=== PATIENT | female | born 1995 | race Caucasian/White ===

== ENCOUNTER 2016-12-26 11:02 | Emergency (ER) | payer OTHER ==
[2016-12-26] MEDS ORDERED: ORPHENADRINE 30 MG/ML 2 ML VIAL IM STA (11:50)
[2016-12-26] MEDS ORDERED: KETOROLAC 60 MG/2 ML VIAL IM STA (11:50)
--- NOTE | 2016-12-26 11:53 | ED ---
Back Pain HPI - General Chief Complaint: Back Pain/Injury Stated Complaint: Back pain Time Seen by Provider: 12/26/16 11:36 Source: patient Limitations: no limitations - History of Present Illness Initial Comments: 21-year-old female patient presents emergency department today for complaints of right lower back pain with radiation down her right leg. Patient states symptoms started this morning. Patient states that she does have a history of chronic back pain, herniated disc, and did have steroid injections with nerve burning in June or July. Patient states she's been having symptoms similar to this intermittently since then. Patient denies any loss of bowel or bladder function. She denies any saddle anesthesia. She denies any fever or chills. Patient denies any hematuria, dysuria, urinary urgency or urinary frequency. Patient is unsure if she is . She has palpable procedures performed at [facility]. - Related Data Previous Rx's Medication Instructions Recorded Ibuprofen [Motrin] 600 mg PO Q8HR PRN #30 tab 12/26/16 methylPREDNISolone [Medrol Dose 4 mg PO DIRECTED #1 pack 12/26/16 Pack] Allergies Allergy/AdvReac Type Severity Reaction Status Date / Time No Known Allergies Allergy Verified 12/26/16 11:29 Review of Systems ROS Statement: Those systems with pertinent positive or pertinent negative responses have been documented in the HPI. ROS Other: All systems not noted in ROS Statement are negative. Past Medical History Past Medical History: No Reported History Additional Past Medical History / Comment(s): ABDOMINAL PAIN, migraines, blood in stool on and off, chronic back pain History of Any Multi-Drug Resistant Organisms: None Reported Past Surgical History: Cholecystectomy Past Anesthesia/Blood Transfusion Reactions: Motion Sickness Past Psychological History: Depression Additional Psychological History / Comment(s): . Smoking Status: Never smoker Past Alcohol Use History: None Reported Past Drug Use History: None Reported - Past Family History Mother Family Medical History: No Reported History Father Family Medical History: Hypertension General Exam Limitations: no limitations General appearance: alert, in no apparent distress Head exam: Present: atraumatic, normocephalic, normal inspection Eye exam: Present: normal appearance, PERRL, EOMI. Absent: scleral icterus, conjunctival injection, periorbital swelling ENT exam: Present: normal exam, mucous membranes moist Neck exam: Present: normal inspection. Absent: tenderness, meningismus, lymphadenopathy Respiratory exam: Present: normal lung sounds bilaterally. Absent: respiratory distress, wheezes, rales, rhonchi, stridor Cardiovascular Exam: Present: regular rate, normal rhythm, normal heart sounds. Absent: systolic murmur, diastolic murmur, rubs, gallop, clicks GI/Abdominal exam: Present: soft, normal bowel sounds. Absent: distended, tenderness, guarding, rebound, rigid Extremities exam: Present: normal inspection, full ROM, normal capillary refill , other (Pedal pulses intact 2+.). Absent: tenderness, pedal edema, joint swelling, calf tenderness Back exam: Present: normal inspection. Absent: CVA tenderness (R), CVA tenderness (L) Expanded Back exam: Positive Straight Leg Raise: Right Neurological exam: Present: alert, oriented X3, CN II-XII intact Psychiatric exam: Present: normal affect, normal mood Skin exam: Present: warm, dry, intact, normal color. Absent: rash Course Vital Signs 12/26/16 11:14 Temperature 98.7 F Pulse Rate 97 Respiratory 18 Rate Blood Pressure 122/78 O2 Sat by Pulse 96 Oximetry Medical Decision Making - Medical Decision Making 21-year-old female patient presented for evaluation of lower back pain with radiation down the right leg. Symptoms are consistent with sciatica. Straight leg test on the right was positive. hCG results negative, patient will be discharged home with a prescription for Motrin and Medrol Dosepak. Patient will be given IM injection here of Toradol and Norflex. Patient instructed to follow up with [facility]. Follow-up with her primary care physician one to 2 days for recheck. Return for any new, worsening, or concerning symptoms. She verbalizes understanding and agrees with this plan. - Lab Data Lab Results 12/26/16 Range/Units 11:55 Urine HCG, Qual Not Detected (Not Detectd) Disposition Clinical Impression: Sciatica Disposition: HOME SELF-CARE Condition: Stable Instructions: Chronic Back Pain (ED), Sciatica (ED) Additional Instructions: Warm moist heat to the area. Gentle stretching exercises. Take anti- inflammatory medications as directed. Complete steroid Dosepak and full. Follow-up with [facility]. Return for any new, worsening, or concerning symptoms. Prescriptions: Ibuprofen [Motrin] 600 mg PO Q8HR PRN #30 tab PRN Reason: Pain methylPREDNISolone [Medrol Dose Pack] 4 mg PO DIRECTED #1 pack Referrals: Theron Davenport MD [Primary Care Provider] - 1-2 days Time of Disposition: 12:09
[2016-12-26 12:51] VITALS: BP 121/67; PULSE 60; RESP 16; TEMP 97.9
== END 2016-12-26 12:50 | disposition home or self-care (01) ==
LOC: EC 11:02
DX: G89.29 Other chronic pain (principal); M54.31 Sciatica, right side; Z32.02 Encounter for pregnancy test, result negative
CPT/HCPCS: 96372 ×3; 99283 ×2; 81025; J2360; J1885

== ENCOUNTER 2017-04-22 15:45 | Emergency (ER) | payer OTHER ==
[2017-04-22 15:49] VITALS: BP 127/75; PULSE 88; RESP 18; TEMP 99
[2017-04-22] MEDS ORDERED: ONDANSETRON ODT 4 MG TAB PO STA (16:22)
--- NOTE | 2017-04-22 16:24 | ED ---
General Adult HPI - General Chief complaint: Nausea/Vomiting/Diarrhea Stated complaint: Abd pain Time Seen by Provider: 04/22/17 15:50 Source: patient, RN notes reviewed Mode of arrival: ambulatory Limitations: no limitations - History of Present Illness Initial comments: This is a 21-year-old female who presents emergency Department complaining that she has been vomiting since Monday patient states she has been keep down some fluid but no full. Patient states she might be but she doesn't know. Patient states she has some abdominal cramping but no specific area of pain. Patient denies any fever chills. Patient denies any diarrhea. Patient denies any chest pain difficulty breathing or shortness of breath. - Related Data Home Medications Medication Instructions Recorded Confirmed No Known Home Medications [No 04/22/17 04/22/17 Known Home Medications] Allergies Allergy/AdvReac Type Severity Reaction Status Date / Time No Known Allergies Allergy Verified 04/22/17 15:49 Review of Systems ROS Statement: Those systems with pertinent positive or pertinent negative responses have been documented in the HPI. ROS Other: All systems not noted in ROS Statement are negative. Past Medical History Past Medical History: No Reported History Additional Past Medical History / Comment(s): ABDOMINAL PAIN, migraines, chronic back pain History of Any Multi-Drug Resistant Organisms: None Reported Past Surgical History: Cholecystectomy Past Anesthesia/Blood Transfusion Reactions: Motion Sickness Past Psychological History: Depression Smoking Status: Never smoker Past Alcohol Use History: None Reported Past Drug Use History: None Reported - Past Family History Mother Family Medical History: No Reported History Father Family Medical History: Hypertension General Exam - General Exam Comments Initial Comments: GENERAL: Patient is well-developed and well-nourished. Patient is nontoxic and well- hydrated and is in no acute distress. Patient is able to laugh and joke around in the emergency department. ENT: Neck is soft and supple. No significant lymphadenopathy is noted. Oropharynx is clear. Moist mucous membranes. Neck has full range of motion without eliciting any pain. EYES: The sclera were anicteric and conjunctiva were pink and moist. Extraocular movements were intact and pupils were equal round and reactive to light. Eyelids were unremarkable. PULMONARY: Unlabored respirations. Good breath sounds bilaterally. No audible rales rhonchi or wheezing was noted. CARDIOVASCULAR: There is a regular rate and rhythm without any murmurs gallops or rubs. ABDOMEN: Patient's abdomen is completely nontender and soft and no masses were palpated. SKIN: Skin is clear with no lesions or rashes and otherwise unremarkable. NEUROLOGIC: Patient is alert and oriented x3. Cranial nerves II through XII are grossly intact. Motor and sensory are also intact. Normal speech, volume and content. Symmetrical smile. MUSCULOSKELETAL: Normal extremities with adequate strength and full range of motion. LYMPHATICS: No significant lymphadenopathy is noted PSYCHIATRIC: Normal psychiatric evaluation. Limitations: no limitations Course Vital Signs 04/22/17 15:47 Temperature 99.0 F Pulse Rate 88 Respiratory 18 Rate Blood Pressure 127/75 O2 Sat by Pulse 98 Oximetry Medical Decision Making - Medical Decision Making Patient presents to test came back positive and she wanted no further treatment was requesting to go home. She refuses Zofran. Patient did not wait for her urinalysis results. - Lab Data Lab Results 04/22/17 Range/Units 16:25 Urine HCG, Qual Detected (Not Detectd) Disposition Clinical Impression: Vomiting during Disposition: HOME SELF-CARE Condition: Good Instructions: Acute Nausea and Vomiting (ED) Additional Instructions: Patient should follow-up with her [facility] as soon as possible. Patient should start vitamins. Referrals: Theron Davenport MD [Primary Care Provider] - 1-2 days Time of Disposition: 16:39
[2017-04-22 16:40] LABS: Appearance,Urine Cloudy (Clear); Bacteria,Urine Rare /hpf; Bilirubin,Urine Negative (Negative); Glucose,Urine (UA) Negative (Negative); Ketones,Urine Negative (Negative); Leukocyte Esterase,Urine Small (Negative); Mucus,Urine Rare /hpf; Nitrite,Urine Negative (Negative); PH, Urine 7.5 (5.0-8.0); Particle Count 3640; Protein,Urine Negative (Negative); RBC,Urine <1 /hpf (0-5); Specific Gravity,Urine 1.013 (1.001-1.035); Squamous Epithelial Cell,Urine 8 /hpf (0-4); UA Billing (MACRO vs. MICRO) MICRO; Urobilinogen,Urine <2.0 mg/dL (<2.0); WBC,Urine 2 /hpf (0-5)
== END 2017-04-22 16:45 | disposition home or self-care (01) ==
LOC: EC 15:45
DX: O21.9 Vomiting of pregnancy, unspecified (principal); O99.89 Other specified diseases and conditions complicating pregnancy, childbirth and the puerperium; R10.9 Unspecified abdominal pain; Z90.49 Acquired absence of other specified parts of digestive tract; Z3A.00 Weeks of gestation of pregnancy not specified
CPT/HCPCS: 81001; 81025; 99284

== ENCOUNTER → 2017-04-25 | Outpatient (CLI) | payer OTHER ==
--- NOTE | 2017-04-25 15:04 | US ---
EXAMINATION TYPE: US OB <=14 wks transvag DATE OF EXAM: 04/25/2017 COMPARISON: NONE CLINICAL HISTORY: O00.90 ectopic . Pt states + test/ Cramping EXAM PERFORMED: Transvaginal (TV) and Transabdominal (TA) EXAM MEASUREMENTS: GESTATIONAL AGE / DATING Physician Established: Not established Dates by LMP: (4 weeks/4 days) EDC: 12/29/2017 Dates by First Scan: No prior Dates by Current Scan for: No IUP seen at this time MATERNAL ANATOMY Uterus: 7.9 x 4.4 x 6.4 Right Ovary: 3.3 x 2.8 x 2.4 cm Left Ovary: 3.9 x 2.1 x 2.0 cm Post CDS / Adnexa: wnl Presence of free fluid: No Presence of corpus luteal cyst: Right Ovary= 2.2 x 1.6 x 2.0 cm Presence of subchorionic bleed: No GESTATION / SURVEY MSD: 0.5 cm Too early to calculate Date of LMP: 03/24/2017 Beta HcG (if available): Not available Possible early gestational sac vs. fluid within endometrial canal IMPRESSION: 1. Possible intrauterine . Differential should include fluid and decidual reaction. Correlat ion with beta-hCG and follow-up examinations are recommended. 2. Right ovarian cyst.
== END | disposition home or self-care (01) ==
LOC: RADUSWWP 14:19
PROVIDERS: ATTEND Family Medicine
DX: O00.90 Unspecified ectopic pregnancy without intrauterine pregnancy (principal); O34.81 Maternal care for other abnormalities of pelvic organs, first trimester; N83.201 Unspecified ovarian cyst, right side; Z3A.01 Less than 8 weeks gestation of pregnancy
CPT/HCPCS: 76801; 76817

== ENCOUNTER → 2017-06-02 | Outpatient (CLI) | payer OTHER ==
--- NOTE | 2017-06-02 14:25 | US ---
EXAMINATION TYPE: US abdomen complete DATE OF EXAM: 06/02/2017 COMPARISON: CT abdomen pelvis April 24, 2016 CLINICAL HISTORY: Z33.1 STATE. Cramping EXAM MEASUREMENTS: Liver Length: 14.8 cm Gallbladder Wall: surgically absent CBD: 0.3 cm Spleen: 11.9 cm Right Kidney: 11.2 x 4.2 x 3.4 cm Left Kidney: 11.5 x 5.4 x 4.6 cm Results called to TISHA Poe at Dr's office Pancreas: Body wnl head and tail obscured by bowel gas Liver: wnl Gallbladder: Surgically absent Evidence for sonographic Major's sign: no CBD: wnl Spleen: wnl Right Kidney: wnl Left Kidney: wnl Upper IVC: wnl Abd Aorta: wnl The visualized liver is homogenous. The intrahepatic portion of the IVC and proximal abdominal aorta are within normal limits. Gallbladder is surgically absent. Common bile duct is unremarkable. The visualized portions of the pancreas are homogenous. The spleen is unremarkable. Kidneys are symmetr ic and free of hydronephrosis. No renal lesions are seen. IMPRESSION: No significant finding is seen to account for patient's symptoms of cramping.
--- NOTE | 2017-06-02 14:27 | US ---
EXAMINATION TYPE: US OB <= 14 wk fetus DATE OF EXAM: 06/02/2017 COMPARISON: First trimester ultrasound April 25, 2017 CLINICAL HISTORY: Z33.1 STATE. Cramping EXAM PERFORMED: Transabdominal (TA) EXAM MEASUREMENTS: GESTATIONAL AGE / DATING Physician Established: Not yet established Dates by LMP: (9 weeks/4 days) EDC: 01/01/2018 Dates by First Scan: No prior Dates by Current Scan for: (10 weeks/1 days) EDC: 12/28/2017 MATERNAL ANATOMY Uterus: 8.7 x 7.8 x 9.1 Right Ovary: 4.0 x 2.0 x 3.4 Left Ovary: 3.5 x 1.5 x 2.4 Post CDS / Adnexa: wnl Presence of free fluid: No Presence of corpus luteal cyst: Right Ovary= 2.0 x 1.7 x 1.6 cm Presence of subchorionic bleed: No GESTATION / SURVEY CRL: 3.2 cm (10 weeks/1 days) MSD: wnl Yolk Sac (normal less than 6mm): 3mm Heart Rate: 168 bpm Rhythm: Normal IUP: Viable IUP Date of LMP: 03/27/2017 Single live intrauterine gestation is now identified as gestational sac, yolk sac, and pole a re present. No free fluid is seen in pelvic cul-de-sac. Both ovaries are identified. Within right ovary there is 2.0 cm peripheral hypervascular slightly hyp oechoic lesion felt to reflect corpus luteal cyst redemonstrated. No concerning extraovarian adnexal masses are noted. Results called to Deepika GILES at 's office at time of exam IMPRESSION: Single live intrauterine gestation is confirmed, mean crown-rump length is 3.2 cm corresponding to 10 week 1 day old fetus
== END | disposition home or self-care (01) ==
LOC: RADUSWWP 13:27
PROVIDERS: ATTEND Family Medicine
DX: R25.2 Cramp and spasm (principal); Z33.1 Pregnant state, incidental
CPT/HCPCS: 76700; 76801

== ENCOUNTER 2017-08-30 10:22 | Outpatient (CLI) | payer OTHER ==
[2017-08-30 10:50] VITALS: BP 119/82; PULSE 76; RESP 18; TEMP 97.6
--- NOTE | 2017-10-09 13:55 | P.MSEPDOC ---
Presenting Problems - Arrival Data Date of Arrival on Unit: 08/30/17 Time of Arrival on Unit: 10:25 Mode of Transport: Ambulatory - Complaint OB-Reason for Admission/Chief Complaint: Other Comment: pt 22 weeks gestation arrived c/o diarrhea and emesis since 1 am pt states her son ady had diarrhea also Medical History - Information : 2 Para: 1 Term: 1 : 0 Abortions: Spontaneous or Elective: 0 Number of Living Children: 1 - Gestational Age Gestational Age by CARL (wks/days): 22 Weeks and 5 Days Review of Systems - Review of Systems Constitutional: No problems Breast: No problems ENT: No problems Cardiovascular: No problems Respiratory: No problems Gastrointestinal: No problems Genitourinary: No problems Musculoskeletal: No problems Neurological: No problems Skin: No problems Vital Signs - Temperature Temperature: 97.6 F Temperature Source: Oral - Pulse Right Brachial Pulse Rate: 76 Pulse Assessment Method: Automatic Cuff - Respirations Respiratory Rate: 18 Oxygen Delivery Method: Room Air - Blood Pressure Right Arm Blood Pressure: 119/82 Blood Pressure Mean: 94 Blood Pressure Source: Automatic Cuff Medical Screen Scoring (Pre) - Cervical Exam Dilation: Exam Deferred Effacement: Exam Deferred Membranes: Intact - Uterine Contractions Frequency: N/A Duration: N/A Intensity: N/A - Maternal Vital Signs Maternal Temperature: N/A Maternal Blood Pressure: N/A Signs of Preeclampsia: Headache = 1, Nausea/Vomiting = 1 Maternal Respirations: N/A - Pain Assessment Pain Scale Used: Numeric (1 - 10) Pain Intensity: 7 Pain Management Goal: 2 Pain Description: Pulling, Sharp Pain Frequency: Constant Pain Behavior: Vocalization Pain Aggravating Factors: Position Non-Pharmacological Interventions: Position/Reposition FLACC Face: No Expression/Smile = 0 FLACC Legs: Relaxed = 0 FLACC Activity: Lying Quietly = 0 FLACC Cry: No Cry = 0 FLACC Consolability: Content/Relaxed = 0 FLACC Pain Score: 0 - Maternal Trauma Maternal Trauma: N/A - Assessment Baseline FHR: 150 Heart Rate - NICHD Category: Category I (Normal) = 0 Position: N/A Station: N/A - Total Score Total Score (Pre): 2 - Level of Risk Level of Risk: Low (0-5) Physician Notification (Pre) - Physician Notified Physician Notified Date: 08/30/17 Physician Notification (Post) - Physician Notified Physician Notified Date: 08/30/17 Physician Notified Time: 11:10 Spoke With: dr enriquez New Order Received: Yes - Notification Comment Comment: may discharge pt to home and have pt rest Disposition - Disposition OB Disposition: Discharge to home Discharge Date: 08/30/17 Discharge Time: 11:20 I agree with the RN Medical Screening Exam: Yes Risk & Benefit of care provided described in d/c instruction: Yes Diagnosis: RELATED CONDITIONS, UNSPECIFIED, SECOND TRIMESTER
== END 2017-08-30 11:20 | disposition home or self-care (01) ==
LOC: FBPOP 10:22
PROVIDERS: ATTEND Obstetrics & Gynecology
DX: O21.9 Vomiting of pregnancy, unspecified (principal); O99.89 Other specified diseases and conditions complicating pregnancy, childbirth and the puerperium; R19.7 Diarrhea, unspecified; Z3A.22 22 weeks gestation of pregnancy
CPT/HCPCS: 99213

== ENCOUNTER 2017-10-02 13:05 | Outpatient (CLI) | payer OTHER ==
[2017-10-02 13:27] LABS: Appearance,Urine Cloudy (Clear); Bacteria,Urine Occasional /hpf; Bilirubin,Urine 1+ (Negative); Blood,Urine Negative (Negative); Color,Urine Yellow; Glucose,Urine (UA) Negative (Negative); Ketones,Urine Negative (Negative); Leukocyte Esterase,Urine Small (Negative); Mucus,Urine Moderate /hpf; Nitrite,Urine Negative (Negative); Protein,Urine 1+ (Negative); RBC,Urine 1 /hpf (0-5); Specific Gravity,Urine 1.028 (1.001-1.035); Squamous Epithelial Cell,Urine 9 /hpf (0-4); WBC,Urine 4 /hpf (0-5)
[2017-10-02 14:17] VITALS: BP 131/70; PULSE 95; RESP 16; TEMP 96.9
--- NOTE | 2017-10-09 13:41 | P.MSEPDOC ---
Presenting Problems - Arrival Data Date of Arrival on Unit: 10/02/17 Time of Arrival on Unit: 13:05 Mode of Transport: Ambulatory - Complaint OB-Reason for Admission/Chief Complaint: Pain Medical History - Information : 2 Para: 1 Term: 1 : 0 Abortions: Spontaneous or Elective: 0 Number of Living Children: 1 - Gestational Age Gestational Age by CARL (wks/days): 27 Weeks and 3 Days Review of Systems - Review of Systems Constitutional: No problems Breast: No problems ENT: No problems Cardiovascular: No problems Respiratory: No problems Gastrointestinal: No problems Genitourinary: No problems Musculoskeletal: No problems Neurological: No problems Skin: No problems Vital Signs - Temperature Temperature: 96.9 F Temperature Source: Tympanic - Pulse Right Brachial Pulse Rate: 95 Pulse Assessment Method: Automatic Cuff - Respirations Respiratory Rate: 16 Oxygen Delivery Method: Room Air - Blood Pressure Right Arm Blood Pressure: 131/70 Blood Pressure Mean: 90 Blood Pressure Source: Automatic Cuff Medical Screen Scoring (Pre) - Cervical Exam Dilation: 0 cm = 0 Membranes: Intact - Uterine Contractions Frequency: N/A Duration: N/A Intensity: N/A - Maternal Vital Signs Maternal Temperature: N/A Signs of Preeclampsia: N/A Maternal Respirations: N/A - Pain Assessment Pain Location and Character: Back Pain Scale Used: Numeric (1 - 10) Pain Intensity: 7 Pain Management Goal: 2 Pain Description: *Acute Pain Radiation Location: na Pain Frequency: Intermittent Pain Duration: 8 Pain Duration Units: Hours Pain Behavior: None Exhibited Pain Aggravating Factors: Activity Non-Pharmacological Interventions: Position/Reposition, Reduce Environmental Stimuli, Relaxation Technique - Maternal Trauma Maternal Trauma: N/A - Assessment Baseline FHR: 135 Heart Rate - NICHD Category: Category I (Normal) = 0 Position: N/A Station: N/A - Total Score Total Score (Pre): 0 - Level of Risk Level of Risk: Low (0-5) Physician Notification (Pre) - Physician Notified Physician Notified Date: 10/02/17 Physician Notified Time: 13:49 Physician/Practitioner Notifed:: Dr. Acosta Spoke With: Dr. Acosta New Order Received: No Disposition - Disposition OB Disposition: Discharge to home Discharge Date: 10/02/17 Discharge Time: 14:00 I agree with the RN Medical Screening Exam: Yes Risk & Benefit of care provided described in d/c instruction: Yes Diagnosis: FALSE LABOR BEFORE 37 COMPLETED WEEKS OF GEST, THIRD TRI
== END 2017-10-02 14:21 | disposition home or self-care (01) ==
LOC: FBPOP 13:05
PROVIDERS: ATTEND Obstetrics & Gynecology
DX: O47.03 False labor before 37 completed weeks of gestation, third trimester (principal); R52 Pain, unspecified; Z3A.37 37 weeks gestation of pregnancy
CPT/HCPCS: 81001; 87086; G0463; 99213

== ENCOUNTER 2017-12-19 18:51 | Inpatient (IN) | payer OTHER ==
[2017-12-19 20:16] LABS: Basophils % (A) 0 %; Eosinophils % (A) 0 %; HCT 35.6 % (34.0-46.0); HGB 12.5 gm/dL (11.4-16.0); Lymphocytes # (A) 1.4 k/uL (1.0-4.8); Lymphocytes % (A) 17 %; MCH 27.9 pg (25.0-35.0); MCHC 35.2 g/dL (31.0-37.0); MCV 79.2 fL (80.0-100.0); Mean Platelet Volume 7.7; Monocytes # (A) 0.4 k/uL (0-1.0); Monocytes % (A) 4 %; Neutrophils # (A) 6.7 k/uL (1.3-7.7); Neutrophils % (A) 77 %; Platelet Count 264 k/uL (150-450); Poikilocytosis Slight; RDW 14.6 % (11.5-15.5); WBC 8.6 k/uL (3.8-10.6)
[2017-12-19 20:26] LABS: ALT 17 U/L (9-52); AST 21 U/L (14-36); Blood Urea Nitrogen 10 mg/dL (7-17); LDH 485 U/L (313-618); Uric Acid 3.8 mg/dL (3.7-7.4)
[2017-12-19 20:31] LABS: Appearance,Urine Cloudy (Clear); Bilirubin,Urine Negative (Negative); Blood,Urine Negative (Negative); Color,Urine Yellow; Glucose,Urine (UA) Negative (Negative); Ketones,Urine 2+ (Negative); Leukocyte Esterase,Urine Negative (Negative); Mucus,Urine Moderate /hpf; Nitrite,Urine Negative (Negative); Protein,Urine 1+ (Negative); RBC,Urine 2 /hpf (0-5); Specific Gravity,Urine 1.029 (1.001-1.035); Squamous Epithelial Cell,Urine 10 /hpf (0-4); Urobilinogen,Urine <2.0 mg/dL (<2.0); WBC,Urine 2 /hpf (0-5)
[2017-12-19] MEDS ORDERED: CARBOPROST TROMETHAMINE 250 MCG/ML 1 ML AMP IM PRN (20:53)
[2017-12-19] MEDS ORDERED: TERBUTALINE 1 MG/ML VIAL SQ PRN (20:53)
[2017-12-19] MEDS ORDERED: OXYTOCIN 10 UNIT/ML 1 ML VIAL IM PRN (20:53)
[2017-12-19] MEDS ORDERED: LIDOCAINE 1% (PF) 10 MG/ML (30 ML SDV) SQ PRN (20:53)
[2017-12-19] MEDS ORDERED: METHYLERGONOVINE 0.2 MG/ML 1 ML AMP IM PRN (20:53)
[2017-12-19] MEDS ORDERED: ONDANSETRON 4 MG/2 ML VIAL IVP PRN (20:58)
[2017-12-19] MEDS ORDERED: ACETAMINOPHEN TAB 325 MG TAB PO PRN (20:58)
--- NOTE | 2017-12-19 21:12 | P.HPOB ---
History of Present Illness H&P Date: 12/19/17 Chief Complaint: Headache with nausea and vomiting, 38+ weeks The patient is a 22-year-old 2 para 1001 admitted at 38+ weeks as established by last menstrual period and confirmed by second trimester ultrasound. She is admitted to triage with a complaint of nausea and vomiting and additionally headache beginning around the same time this afternoon. Upon presentation, her blood pressures were noted to be moderately elevated in the range of 150-160 over 90s for the first 1-2 readings. She had a single blood pressure reading of approximately 180/100 following getting up to go to the bathroom.. At rest, blood pressures have now settled into the range of 140s over 80s to 90s. Her headache has dissipated and she is complaining of less nausea and vomiting. As result of her initial presentation, she had labs sent to evaluate for preeclampsia which were essentially negative with a normal uric acid, normal liver functions, normal hemoglobin and hematocrit and platelet count, and 1+ protein on a urine dip which was contaminated in nature. Her cervix has been documented at 3 cm dilated on multiple previous admissions to triage. Given her blood pressure lability and a history of subsequent blood pressure problems following her last delivery, she has been admitted for induction of labor for -induced hypertension and possible mild preeclampsia. She will be admitted overnight with the cyclic but blood pressures. If they continue to increase significantly she will be acutely induced. Otherwise the intention will be to begin Pitocin augmentation at 0600 and undergo artificial rupture of membranes shortly thereafter in standard fashion. Evaluation of the fetus the demonstrates very reassuring heart tones. Her has otherwise been essentially uncomplicated though there was some concern that her 20 week ultrasound for the kidneys to be riding low in the pelvis, possible pelvic kidneys. Group B strep status is negative. Obstetrical history: 2 para 1001 with 1 previous term vaginal delivery without complications though her course was complicated by elevated blood pressures for approximately 2 months. Current statistics are listed above. EDC of 12/29/2017 was established by last menstrual period and confirmed by second trimester ultrasound. Laboratory workup demonstrates a blood type of O+ with a negative antibody screen. Rubella status is immune. Remainder of the laboratory workup was within normal limits. One hour Glucola was normal and group B strep status is negative. Gynecologic history: Unremarkable with no history of any infections to include STDs. Review of Systems Review of systems is confined to history of present illness. Past Medical History Past Medical History: No Reported History Additional Past Medical History / Comment(s): ABDOMINAL PAIN, migraines, chronic back pain History of Any Multi-Drug Resistant Organisms: None Reported Past Surgical History: Cholecystectomy Past Anesthesia/Blood Transfusion Reactions: Motion Sickness Smoking Status: Never smoker - Past Family History Mother Family Medical History: No Reported History Father Family Medical History: Hypertension Medications and Allergies Home Medications Medication Instructions Recorded Confirmed Type Pedi Multivit No.25/Folic Acid 300 mcg PO DAILY 12/18/17 12/19/17 History [Flintstones Multivit Chew Tab] Allergies Allergy/AdvReac Type Severity Reaction Status Date / Time No Known Allergies Allergy Verified 12/19/17 18:53 Exam - Vital Signs Vital signs: Intake and Output 12/19/17 12/19/17 12/19/17 06:59 14:59 22:59 Other: Weight 171 kg In general, this is a well-developed, well-nourished white female in no acute distress at this time. Her heart has a regular rhythm and rate without murmur. Her lungs are clear to auscultation bilaterally in all braga. Her abdomen is gravid, nondistended, has normal active bowel sounds, is soft, nontender, and without any palpable masses aside from uterine fundus. Her extremities are without any cyanosis, clubbing or significant edema and are nontender to palpation bilaterally. Digital cervical examination demonstrates her cervix to be 3 cm dilated, 50% effaced, the vertex in presentation at -2 station. Results Result Diagrams: 12/19/17 20:00 12/19/17 20:00 Abnormal Lab Results - Last 24 Hours (Table) 12/19/17 12/19/17 Range/Units 19:40 20:00 MCV 79.2 L (80.0-100.0) fL Urine Appearance Cloudy H (Clear) Urine Protein 1+ H (Negative) Ur Squamous Epith Cells 10 H (0-4) /hpf Urine Mucus Moderate H (None) /hpf Assessment and Plan (1) induced hypertension Current Visit: Yes Status: Acute Code(s): O13.9 - GESTATIONAL HTN W/O SIGNIFICANT PROTEINURIA, UNSP TRIMESTER SNOMED Code(s): 50843837 (2) 38 weeks gestation of Current Visit: Yes Status: Acute Code(s): Z3A.38 - 38 WEEKS GESTATION OF SNOMED Code(s): 42796613 Plan: The patient will be admitted for overnight observation and close observation of blood pressures. The intention will be to begin induction of labor for -induced hypertension and possible superimposed preeclampsia tomorrow morning. She will have Pitocin started at 6 AM and undergo artificial rupture of membranes shortly thereafter. She will have close maternal and surveillance and expectant management will otherwise be practiced. Should her blood pressures or any other signs or symptoms emerge overnight induction will be started at that time. She is a good candidate for either IV or epidural analgesia, whichever she may choose. All laboratory workup regarding preeclampsia to this point has been negative. Nonetheless, her blood pressures warrant induction of labor rather than further observation as an outpatient given 38+ weeks of gestation.
[2017-12-19] MEDS: LACTATED RINGERS 1,000 ML IV SCH (23:47)
[2017-12-20 00:09] VITALS: BMI 30.2
[2017-12-20] MEDS ORDERED: OXYTOCIN 20 UNITS/1000 ML NS 1,000 ML IV SCH (06:00)
[2017-12-20] MEDS: LACTATED RINGERS 1,000 ML IV SCH (06:40)
--- NOTE | 2017-12-20 07:44 | P.HPOB ---
History of Present Illness H&P Date: 12/20/17 This is a 22-year-old white female 2 para 1001 EDC 12/29/2017 at 38-4/7 weeks' gestation. Patient presented to labor and delivery with strong regular uterine contractions, bleeding she is in early labor. Initial blood pressure elevated at 160s over 80s, 146/91 on admission. She denies headache visual changes or right upper quadrant pain. Fetus is been active throughout the . She denies fluid leakage. Past medical history is significant for depression, polycystic ovaries, rheumatoid arthritis, bulging disks in the back, and hypertension with her first delivery in 2014. Past surgical history cholecystectomy 2015. Current medications vitamins daily. ALLERGIES none known. Social history patient has never been a smoker, she denies alcohol or drug use. She is single. Family history significant for heart disease and hypertension. Obstetric history is significant for blood type O positive, rubella status immune. Hepatitis B surface antigen, HIV testing, VDRL testing, gonorrhea and chlamydia cultures, group B strep cultures all negative. One-hour Glucola 119. PIH labs all performed and within normal limits. Ultrasound suggesting kidneys are low, cannot exclude pelvic kidneys, anatomic survey otherwise negative. On exam this is a pleasant young female, 5 foot 3 inches, 171 pounds, blood pressure at this time is 130/80 and vital signs are otherwise stable. The general physical exam is within normal limits, chest is clear, extremities reveal no edema. Cervix is 3-4 cm dilated, 60% effaced, -2 station, vertex presentation. Artificial amniorrhexis reveals clear fluid. heart rate is consistent with reactive NST. Impression: 38-4/7 weeks intrauterine , -induced hypertension with normal blood pressure at this time. Plan: Oxytocin per hospital protocol. Epidural may be placed per her request. Continue close maternal and surveillance. Anticipate normal spontaneous vaginal delivery. Review of Systems Constitutional: Reports as per HPI Past Medical History Past Medical History: No Reported History Additional Past Medical History / Comment(s): ABDOMINAL PAIN, migraines, chronic back pain History of Any Multi-Drug Resistant Organisms: None Reported Past Surgical History: Cholecystectomy Past Anesthesia/Blood Transfusion Reactions: Motion Sickness Past Psychological History: Depression Additional Psychological History / Comment(s): . Smoking Status: Never smoker Past Alcohol Use History: None Reported Past Drug Use History: None Reported - Past Family History Mother Family Medical History: No Reported History Father Family Medical History: Hypertension Medications and Allergies Home Medications Medication Instructions Recorded Confirmed Type Pedi Multivit No.25/Folic Acid 300 mcg PO DAILY 12/18/17 12/19/17 History [Flintstones Multivit Chew Tab] Allergies Allergy/AdvReac Type Severity Reaction Status Date / Time No Known Allergies Allergy Verified 12/19/17 18:53 Exam - Vital Signs Vital signs: Vital Signs Temp Pulse Resp BP 12/19/17 23:25 98.7 F 63 18 129/74 Intake and Output 12/19/17 12/20/17 12/20/17 22:59 06:59 14:59 Other: # Voids 1 Weight 171 kg 77.564 kg See dictation under HPI please Results Result Diagrams: 12/19/17 20:00 12/19/17 20:00 Abnormal Lab Results - Last 24 Hours (Table) 12/19/17 12/19/17 Range/Units 19:40 20:00 MCV 79.2 L (80.0-100.0) fL Urine Appearance Cloudy H (Clear) Urine Protein 1+ H (Negative) Urine Ketones 2+ H (Negative) Ur Squamous Epith Cells 10 H (0-4) /hpf Urine Mucus Moderate H (None) /hpf Assessment and Plan Plan: Oxytocin per hospital protocol. Close maternal and surveillance. Anticipate normal spontaneous vaginal delivery. Time with Patient: Less than 30
[2017-12-20] MEDS ORDERED: fentaNYL (PF) 50 MCG/ML 5 ML AMP ONE (08:54)
[2017-12-20] MEDS ORDERED: BUPIVACAINE (PF) 0.25% 30 ML VIAL ONE (08:54)
[2017-12-20] MEDS ORDERED: SODIUM CHLORIDE 0.9% 100 ML BAG ONE (08:54)
[2017-12-20] MEDS ORDERED: BUPIVACAINE (PF) 0.25% 25 ML, fentaNYL (PF) 200 MCG in SODIUM CHLORIDE 0.9% 71 ML EPIDURAL ONE (09:33)
--- NOTE | 2017-12-20 12:03 | P.PROBDLV ---
Vaginal Delivery Note - . Vaginal Delivery Note: This is a 22 -year-old female 2 para 1001 EDC 12/29/2017 at 38-4/7 weeks ' gestation. Patient presented to labor and delivery with strong regular uterine contractions. Initial blood pressures were high, decreased with observation. Her pressure on admission 146/91. is essentially unremarkable, group B strep cultures negative, rubella status immune. Please see dictated history and physical for details. Artificial amniorrhexis revealed clear fluid. Oxytocin was started and titrated per hospital protocol. She progressed well through the first stage of labor and was judged to be completely dilated at 1126 hours. The perineal body was prepped and draped in usual sterile fashion. With excellent maternal expulsive efforts the head delivered occiput anterior and restituted accordingly. There was a nuchal cord 2 that was reduced on the perineal body. The right or anterior shoulder was delivered from underneath the pubic symphysis at which time the oropharynx, nasopharynx and external nares were all bulb suctioned on the perineal body. Patient was officially delivered of a liveborn male infant at 1148 hours. Umbilical cord was doubly clamped and ligated, he was handed to waiting nurses for evaluation where scores of 8 and 9 at one and 5 minutes respectively were given. The placenta delivered spontaneously, it was inspected and noted to be intact with trivascular cord at 1150 hours. At this time the perineal body was redraped. Inspection of the cervix, vagina, perineum and periurethral areas revealed no lacerations or defects. Fundus is firm and in the midline, symmetric and 18 week size upon completion of delivery. Total estimated blood loss 300 mL's. weighs 7 lbs. 3 oz. or 3 -45 g. Patient and her family are allowed to begin the bonding experience in the LDR. They are requesting circumcision further son.
[2017-12-20] MEDS ORDERED: BENZOCAINE/MENTHOL SPRAY 1 GM/SPRAY AEROSOL TOPICAL PRN (12:04)
[2017-12-20] MEDS ORDERED: HYDROCORTISONE 2.5% RECTAL CREAM 30 GM TUBE RECTAL PRN (12:04)
[2017-12-20] MEDS ORDERED: diphenhydrAMINE 50 MG/ML 1 ML VIAL IVP PRN ×2 (12:04)
[2017-12-20] MEDS ORDERED: diphenhydrAMINE 50 MG CAP PO PRN (12:04)
[2017-12-20] MEDS ORDERED: WITCH HAZEL 1 EACH MED..PAD TOPICAL PRN (12:04)
[2017-12-20] MEDS ORDERED: diphenhydrAMINE 25 MG CAP PO PRN (12:04)
[2017-12-20] MEDS ORDERED: ZOLPIDEM 5 MG TAB PO PRN (12:04)
[2017-12-20] MEDS ORDERED: ACETAMINOPHEN TAB 325 MG TAB PO PRN (12:04)
[2017-12-20] MEDS ORDERED: SIMETHICONE 80 MG CHEWABLE PO PRN (12:04)
[2017-12-20] MEDS ORDERED: LANOLIN CREAM 5 GM TUBE TOPICAL PRN (12:04)
[2017-12-20] MEDS: IBUPROFEN 600 MG TAB PO PRN (19:34)
[2017-12-20] MEDS: SENNOSIDES-DOCUSATE SODIUM 1 EACH TAB PO SCH (19:35)
[2017-12-21] MEDS: IBUPROFEN 600 MG TAB PO PRN ×2 (02:11→18:43)
[2017-12-21] MEDS: LACTATED RINGERS 1,000 ML IV SCH ×2 (04:01→04:02)
--- NOTE | 2017-12-21 07:43 | P.DS ---
Providers Date of admission: 12/19/17 21:00 Expected date of discharge: 12/21/17 Attending physician: Heather Acosta Primary care physician: Stated None Hospital Course: This is a 22 -year-old 2 para 1001 EDC 12/29/2017 at 38-4/7 weeks' gestation. Patient presented in early spontaneous labor. was essentially unremarkable, group B strep cultures negative, blood type O+, rubella status immune. Please see my dictated history and physical for details. Patient received an epidural per her request, and oxytocin augmentation. She went on to deliver a liveborn male infant with scores of 8 and 9 at one and 5 minutes respectively. There was a nuchal cord 2 that was easily reduced, no lacerations or defects needed for repair. Infant weighed 3245 g or 7 lbs. 3 oz. Estimated blood loss recorded at 300 mL's. Please see dictated delivery note for details. This morning the patient is doing well. Although initial blood pressure on admission to labor with high, blood pressure this morning is 115/60's. She is voiding, ambulating, passing flatus without difficulty. Vital signs are stable and she is afebrile. Breast-feeding is going well. [place] has been circumcised. Patient is judged to be in very good condition for discharge home. She will follow-up with me in the office in 6 weeks. I have reminded her no intercourse, tampons or douching. She will use [id number] ibuprofen products as needed for pain. I've asked her to call with any fevers shakes or chills, foul smelling or copious lochia, with the passage of large blood clots, with any pain not alleviated by ibuprofen products, with any headache visual changes or right upper quadrant pain, or indeed with any concerns. We have briefly discussed contraceptive options and we will review this further in the office in 6 weeks. Patient Condition at Discharge: Good Plan - Discharge Summary New Discharge Prescriptions: No Action Pedi Multivit No.25/Folic Acid [Flintstones Multivit Chew Tab] 300 mcg PO DAILY Discharge Medication List Pedi Multivit No.25/Folic Acid [Flintstones Multivit Chew Tab] 300 mcg PO DAILY 12/18/17 [History] Follow up Appointment(s)/Referral(s): Heather Acosta MD [STAFF PHYSICIAN] - 6 Weeks Discharge Disposition: HOME SELF-CARE
[2017-12-21] MEDS: SENNOSIDES-DOCUSATE SODIUM 1 EACH TAB PO SCH (09:41)
[2017-12-22] MEDS: SENNOSIDES-DOCUSATE SODIUM 1 EACH TAB PO SCH ×2 (00:31→09:59)
[2017-12-22 07:43] VITALS: BP 135/87; PULSE 76; RESP 16; TEMP 97.2
[2017-12-22] MEDS: IBUPROFEN 600 MG TAB PO PRN (09:59)
== END 2017-12-22 11:45 | disposition home or self-care (01) | DRG 775 ==
LOC: FBPOP 18:51 → 4FBP 21:00
PROVIDERS: ADMIT Obstetrics & Gynecology; ATTEND Obstetrics & Gynecology
PROC: 3E033VJ Introduction of Other Hormone into Peripheral Vein, Percutaneous Approach (ICD-10-PCS; 2017-12-19)
PROC: 00HU33Z Insertion of Infusion Device into Spinal Canal, Percutaneous Approach (ICD-10-PCS; principal; 2017-12-20)
PROC: 10E0XZZ Delivery of Products of Conception, External Approach (ICD-10-PCS; principal; 2017-12-20)
PROC: 3E0R3NZ Introduction of Analgesics, Hypnotics, Sedatives into Spinal Canal, Percutaneous Approach (ICD-10-PCS; principal; 2017-12-20)
DX: O13.4 Gestational [pregnancy-induced] hypertension without significant proteinuria, complicating childbirth (principal); O99.344 Other mental disorders complicating childbirth; E28.2 Polycystic ovarian syndrome; Z37.0 Single live birth; F32.9 Major depressive disorder, single episode, unspecified; M06.9 Rheumatoid arthritis, unspecified; O99.89 Other specified diseases and conditions complicating pregnancy, childbirth and the puerperium; G43.909 Migraine, unspecified, not intractable, without status migrainosus; O69.81X0 Labor and delivery complicated by cord around neck, without compression, not applicable or unspecified; M54.9 Dorsalgia, unspecified; G89.29 Other chronic pain; Z3A.38 38 weeks gestation of pregnancy; Z90.49 Acquired absence of other specified parts of digestive tract; Z82.49 Family history of ischemic heart disease and other diseases of the circulatory system
CPT/HCPCS: 59025; 81001; 82565; 83615; 84450; 84460; 84520; 84550; 85025; 88307; 99215

== ENCOUNTER 2018-04-19 10:45 | Emergency (ER) | payer OTHER ==
[2018-04-19 10:56] VITALS: TEMP 98.7
[2018-04-19] MEDS ORDERED: SULFAMETHOX-TMP 800-160MG 1 EACH TAB PO STA (11:56)
[2018-04-19] MEDS ORDERED: DEXAMETHASONE SOD PHOSPHATE 10 MG/ML 1 ML VIAL IM STA (11:56)
[2018-04-19] MEDS ORDERED: CLINDAMYCIN 150 MG CAP PO STA (11:56)
[2018-04-19] MEDS ORDERED: Acetaminophen-Codeine 300-30mg TAB PO STA (11:56)
[2018-04-19] MEDS ORDERED: IBUPROFEN 600 MG TAB PO STA (11:56)
--- NOTE | 2018-04-19 11:59 | ED ---
General Adult HPI - General Chief complaint: Skin/Abscess/Foreign Body Stated complaint: Facial swelling post injury Time Seen by Provider: 04/19/18 11:19 Source: patient, RN notes reviewed, old records reviewed Mode of arrival: ambulatory Limitations: no limitations - History of Present Illness Initial comments: This is a 22-year-old female the ER for evaluation of abscess facial abscess pain. Patient has history of dental disease feels like she has significant dental abscess. Patient has history of dental abscess. - Related Data Previous Rx's Medication Instructions Recorded Doxycycline Monohydrate [Monodox] 100 mg PO Q12HR #20 cap 04/19/18 Naproxen [Naprosyn] 500 mg PO Q12HR PRN #30 tab 04/19/18 Sulfamethox-Tmp 800-160Mg [Bactrim 2 tab PO BID #40 tab 04/19/18 DS 800-160 mg] Allergies Allergy/AdvReac Type Severity Reaction Status Date / Time No Known Allergies Allergy Verified 04/19/18 11:22 Review of Systems ROS Statement: Those systems with pertinent positive or pertinent negative responses have been documented in the HPI. ROS Other: All systems not noted in ROS Statement are negative. Past Medical History Past Medical History: No Reported History Additional Past Medical History / Comment(s): ABDOMINAL PAIN, migraines, chronic back pain History of Any Multi-Drug Resistant Organisms: None Reported Past Surgical History: Cholecystectomy Past Anesthesia/Blood Transfusion Reactions: Motion Sickness Past Psychological History: Depression Smoking Status: Never smoker Past Alcohol Use History: Occasional Past Drug Use History: None Reported - Past Family History Mother Family Medical History: No Reported History Father Family Medical History: Hypertension General Exam - General Exam Comments Initial Comments: No abscess to drain Limitations: no limitations General appearance: alert, in no apparent distress Head exam: Present: atraumatic, normocephalic, normal inspection Eye exam: Present: normal appearance, PERRL, EOMI. Absent: scleral icterus, conjunctival injection, periorbital swelling ENT exam: Present: normal exam, mucous membranes moist Neck exam: Present: normal inspection. Absent: tenderness, meningismus, lymphadenopathy Respiratory exam: Present: normal lung sounds bilaterally. Absent: respiratory distress, wheezes, rales, rhonchi, stridor Cardiovascular Exam: Present: regular rate, normal rhythm, normal heart sounds. Absent: systolic murmur, diastolic murmur, rubs, gallop, clicks GI/Abdominal exam: Present: soft, normal bowel sounds. Absent: distended, tenderness, guarding, rebound, rigid Extremities exam: Present: normal inspection, full ROM, normal capillary refill. Absent: tenderness, pedal edema, joint swelling, calf tenderness Back exam: Present: normal inspection Neurological exam: Present: alert, oriented X3, CN II-XII intact Psychiatric exam: Present: normal affect, normal mood Skin exam: Present: warm, dry, intact, normal color. Absent: rash Course Vital Signs 04/19/18 04/19/18 10:53 12:15 Temperature 98.7 F Pulse Rate 109 H 98 Respiratory 18 16 Rate Blood Pressure 131/89 128/83 O2 Sat by Pulse 100 100 Oximetry Medical Decision Making - Medical Decision Making 22 female with dental abscess. Patient treated with antibiotics and discharged home Disposition Clinical Impression: Facial abscess, Acne Disposition: HOME SELF-CARE Condition: Fair Instructions: Abscess (ED) Prescriptions: Doxycycline Monohydrate [Monodox] 100 mg PO Q12HR #20 cap Naproxen [Naprosyn] 500 mg PO Q12HR PRN #30 tab PRN Reason: Pain Sulfamethox-Tmp 800-160Mg [Bactrim DS 800-160 mg] 2 tab PO BID #40 tab Is patient prescribed a controlled substance at d/c from ED?: No Referrals: Theron Davenport MD [Primary Care Provider] - 1-2 days Darell Kaplan MD [STAFF PHYSICIAN] - 1-2 days Jethro Kaplan MD [STAFF PHYSICIAN] - 1-2 days
[2018-04-19] MEDS ORDERED: DOXYCYCLINE MONOHYDRATE 100 MG CAPSULE PO STA (12:00)
[2018-04-19 12:15] VITALS: BP 128/83; PULSE 98; RESP 16
== END 2018-04-19 12:20 | disposition home or self-care (01) ==
LOC: EC 10:45
DX: L02.01 Cutaneous abscess of face (principal); L70.9 Acne, unspecified
CPT/HCPCS: 99284; 96372; J1100

== ENCOUNTER 2018-08-20 21:10 | Emergency (ER) | payer OTHER ==
--- NOTE | 2018-08-21 00:06 | XR ---
EXAMINATION TYPE: XR chest 2V DATE OF EXAM: 08/20/2018 COMPARISON: October 29, 2013 HISTORY: Left breast pain TECHNIQUE: Frontal and lateral views of the chest are obtained. FINDINGS: Heart and mediastinum are normal. Lungs are clear. Diaphragm is normal. Bony thorax appear s normal. IMPRESSION: Normal chest.
[2018-08-21] MEDS ORDERED: CYCLOBENZAPRINE 10MG STARTER 3 TAB BTL PO STA (00:14)
--- NOTE | 2018-08-21 00:14 | ED ---
General Adult HPI - General Chief complaint: Skin/Abscess/Foreign Body Stated complaint: Breast pain Time Seen by Provider: 08/20/18 23:09 Source: patient Mode of arrival: ambulatory Limitations: no limitations - History of Present Illness Initial comments: 22-year-old female patient presents to the emergency department today for evaluation of left sided chest pain. Patient states that she's been having the pain for the last 2 weeks. Patient states is a superficial pain she feels like it is in her breast. Patient states that she did see her primary care physician for this and did have breast ultrasound today which was normal so she presented here for further evaluation. Patient denies any injury to the chest wall. Patient states occasionally the pain does worsen when she takes a deep breath. She denies any cough or hemoptysis. Denies any shortness of breath. She denies any rash to the area but states it does occasionally itch. Patient denies any recent rash, fever, chills, abdominal pain, nausea, vomiting, diarrhea, constipation, back pain, numbness, tingling, dizziness, weakness, hematuria, dysuria, urinary urgency, urinary frequency, headache, visual changes , or any other complaints. - Related Data Home Medications Medication Instructions Recorded Confirmed Acetaminophen-Codeine 300-30mg 1 tab PO Q6H PRN 08/20/18 08/20/18 [Tylenol w/codeine #3] Ibuprofen [Motrin] 800 mg PO Q6H PRN 08/20/18 08/20/18 Naproxen Sodium [Anaprox DS] 550 mg PO Q12HR 08/20/18 08/20/18 Previous Rx's Medication Instructions Recorded Cyclobenzaprine [Flexeril] 10 mg PO TID #15 tab 08/21/18 Allergies Allergy/AdvReac Type Severity Reaction Status Date / Time No Known Allergies Allergy Verified 08/20/18 22:26 Review of Systems ROS Statement: Those systems with pertinent positive or pertinent negative responses have been documented in the HPI. ROS Other: All systems not noted in ROS Statement are negative. Past Medical History Past Medical History: No Reported History Additional Past Medical History / Comment(s): ABDOMINAL PAIN, migraines, chronic back pain History of Any Multi-Drug Resistant Organisms: MRSA Date of last positivie culture/infection: 04/23/18 MDRO Source:: MOUTH Past Surgical History: Cholecystectomy Past Anesthesia/Blood Transfusion Reactions: Motion Sickness Past Psychological History: Depression Smoking Status: Never smoker Past Alcohol Use History: Occasional Past Drug Use History: None Reported - Past Family History Mother Family Medical History: No Reported History Father Family Medical History: Hypertension General Exam Limitations: no limitations General appearance: alert, in no apparent distress, other (This is a well- developed, well-nourished adult female patient in no acute distress. Vital signs upon presentation are temperature 98.1F, pulse 62, respirations 18, blood pressure 142/92, pulse ox 100% on room air.) Eye exam: Present: normal appearance, PERRL, EOMI. Absent: scleral icterus, conjunctival injection, periorbital swelling ENT exam: Present: normal exam, normal oropharynx, mucous membranes moist Respiratory exam: Present: normal lung sounds bilaterally, chest wall tenderness (Left anterior chest wall tenderness). Absent: respiratory distress , wheezes, rales, rhonchi, stridor Cardiovascular Exam: Present: regular rate, normal rhythm, normal heart sounds. Absent: systolic murmur, diastolic murmur, rubs, gallop, clicks GI/Abdominal exam: Present: soft, normal bowel sounds. Absent: distended, tenderness, guarding, rebound, rigid Neurological exam: Present: alert, oriented X3, CN II-XII intact Psychiatric exam: Present: normal affect, normal mood Skin exam: Present: warm, dry, intact, normal color, other (Left breast is normal in color with no lesion or wounds. No masses or lumps identified. No nipple drainage.). Absent: rash Course Vital Signs 08/20/18 08/21/18 21:24 00:38 Temperature 98.1 F 98.0 F Pulse Rate 62 78 Respiratory 18 19 Rate Blood Pressure 142/92 131/79 O2 Sat by Pulse 100 99 Oximetry Medical Decision Making - Medical Decision Making 22-year-old female patient comes to the emergency department today for evaluation of left anterior chest wall pain. Physical examination does reveal tenderness to the area. No evidence of skin abnormalities. Chest x-ray showed no evidence of acute cardio pulmonary process. EKG showed normal sinus bradycardia. She did have normal ultrasound of the left breast today for Patient symptoms consistent with costochondritis. We'll treat with anti- inflammatory medication and muscle relaxers. She is instructed to follow-up with her primary care physician for recheck in 1-2 days. Return parameters discussed in detail. She verbalizes understanding and agrees with this plan. - EKG Data -: EKG Interpreted by Me EKG Comments: EKG obtained at 09 shows sinus bradycardia with a sinus arrhythmia. Ventricular rate is 54, VT interval 158, QRS duration 84, QT 420, QTC 398. No evidence of ST elevation or depression. - Radiology Data Radiology results: report reviewed, image reviewed Two-view x-ray of the chest is obtained. Heart mediastinum are normal. Lungs are clear. Diaphragm is normal. Bony thorax appears normal. Impression by Dr. Bello shows normal chest. Disposition Clinical Impression: Costochondritis Disposition: HOME SELF-CARE Condition: Good Instructions: Costochondritis (ED) Additional Instructions: Apply warm compresses to the left chest wall. Take medication as directed. Follow-up with your primary care physician for recheck this as possible. Return immediately for any new, worsening, or concerning symptoms. Prescriptions: Cyclobenzaprine [Flexeril] 10 mg PO TID #15 tab Is patient prescribed a controlled substance at d/c from ED?: No Referrals: Theron Davenport MD [Primary Care Provider] - 1-2 days Time of Disposition: 00:14
[2018-08-21 00:42] VITALS: BP 131/79; PULSE 78; RESP 19; TEMP 98
== END 2018-08-21 00:39 | disposition home or self-care (01) ==
LOC: EC 21:10
DX: M94.0 Chondrocostal junction syndrome [Tietze] (principal); G43.909 Migraine, unspecified, not intractable, without status migrainosus; Z86.14 Personal history of Methicillin resistant Staphylococcus aureus infection; Z79.1 Long term (current) use of non-steroidal anti-inflammatories (NSAID)
CPT/HCPCS: 71046; 93005; 99284

== ENCOUNTER → 2018-08-20 | Outpatient (CLI) | payer OTHER ==
--- NOTE | 2018-08-20 13:33 | USB ---
Reason for exam: clinical finding. History: Family history of breast cancer in paternal aunt. Physical Findings: Nurse Summary: Patient complains of upper outer quadrant left breast pain x 2 weeks (nurse mj). US Breast LT Left complete breast ultrasound includes all four quadrants, the retroareolar region and axilla. Finding demonstrates no cystic or solid lesion seen. No suspicious abnormality. These results were verbally communicated with the patient and result sheet given to the patient on 08/20/18. ASSESSMENT: Negative, BI-RAD 1 RECOMMENDATION: Routine screening mammogram of both breasts at age 41. (or sooner if clinically indicated)
== END ==
LOC: RADUSWWP 12:52
PROVIDERS: ATTEND Family Medicine
DX: N64.4 Mastodynia (principal)

== ENCOUNTER → 2018-09-05 | Outpatient (CLI) | payer OTHER ==
--- NOTE | 2018-09-05 09:33 | MM ---
Reason for exam: clinical finding. History: Family history of breast cancer in paternal aunt. Physical Findings: Nurse did not find any significant physical abnormalities on exam. MG Diagnostic Mammo LT w CAD CC, MLO, and spot compression CC view(s) were taken of the left breast. The breast tissue is extremely dense which could obscure a lesion on mammography. There are 5mm, 7mm and 7mm equal, oval, partially circumscribed left breast masses, two anterior inner CC view, one outer CC view, 5cm from nipple lateral and 3cm from nipple medial persistent on compression. Consensus performed, probably fibroglandular tissue with negative ultrasound. Short term follow up recommended. These results were verbally communicated with the patient and result sheet given to the patient on 09/05/18. ASSESSMENT: Probably benign, BI-RAD 3 RECOMMENDATION: Breast MRI of both breasts. Manage on a clinical basis with regard to pain. Follow-up diagnostic mammogram of the left breast in 6 months.
== END ==
LOC: RADMAMWWP 06:59
PROVIDERS: ATTEND Family Medicine
DX: Z13.89 Encounter for screening for other disorder (principal); Z80.3 Family history of malignant neoplasm of breast
CPT/HCPCS: 77065

== ENCOUNTER → 2018-09-29 | Outpatient (CLI) | payer OTHER ==
--- NOTE | 2018-10-01 10:21 | BMR ---
EXAMINATION TYPE: MR breast BILAT wo/w con DATE OF EXAM: 09/29/2018 COMPARISON: Mammogram dated 09/05/2018 and complete left breast ultrasound dated 08/20/2018 HISTORY: Abn findings. Partially circumscribed left breast masses measuring 5 mm, 7 mm and 7 mm on th e left on the mammogram of 09/05/2018 with no sonographic correlate. TECHNIQUE: A series of fat and water weighted images in the long and short axis views of both breasts are obtained in conjunction with dynamic contrast MRI with subtraction technique. The patient was i njected with 7.5 mL intravenous Gadavist gadolinium contrast. Three-dimensional and additional post processing imaging is created on independent workstation and reviewed during official interpretation of this study. FINDINGS: The breasts are composed of extreme fibroglandular tissue, limiting sensitivity of the exam ination. There is moderate symmetric background parenchymal enhancement, also limiting the sensitivit y of the examination. There is bilateral ductal prominence. No discrete T2 hyperintense masses are appreciated. Potentially corresponding to one of the mammographic masses there is a rounded area of probable fibro glandular tissue in the medial left breast at approximately the 10:00 position measuring 1.[address] series 701 image 260. No additional correlate is seen for the other partially obscured masses. Again 6 month follow-up mamm ogram is recommended for these findings. No suspicious mass nor known mass enhancement is seen within either breast. There is no suspicious ax illary adenopathy, intramammary adenopathy, or internal mammary adenopathy. IMPRESSION: BI-RADS 3-probably benign. Follow-up left breast mammogram is recommended in 6 months for the mammogr aphic abnormalities seen on the exam of 09/05/2018 with no sonographic correlate. There is no MR evid ence of malignancy on today's examination. Mammographic findings are probably benign. Additionally 3- D mammography is recommended at the time of follow-up as this may decrease call back right due to sum mation artifact/overlying dense fibroglandular tissue.
== END | disposition home or self-care (01) ==
LOC: RADMRIMAIN 11:37
PROVIDERS: ATTEND Midwife
DX: R92.8 Other abnormal and inconclusive findings on diagnostic imaging of breast (principal)
CPT/HCPCS: C8937; C8908; A9585; 77049

== ENCOUNTER 2019-02-19 10:16 | Outpatient (CLI) | payer OTHER ==
[2019-02-19 11:12] VITALS: BP 117/71; PULSE 89; RESP 16; TEMP 97.6
[2019-02-19 11:16] LABS: Appearance,Urine Clear (Clear); Bilirubin,Urine Negative (Negative); Blood,Urine Negative (Negative); Color,Urine Yellow; Glucose,Urine (UA) Negative (Negative); Ketones,Urine Negative (Negative); Leukocyte Esterase,Urine Negative (Negative); Nitrite,Urine Negative (Negative); PH, Urine 5.5 (5.0-8.0); Protein,Urine Negative (Negative); Specific Gravity,Urine 1.022 (1.001-1.035); Urobilinogen,Urine <2.0 mg/dL (<2.0)
--- NOTE | 2019-02-19 12:20 | US ---
EXAMINATION TYPE: US venous doppler duplex LE DATE OF EXAM: 02/19/2019 12:06 PM COMPARISON: US 2009 CLINICAL HISTORY: rule out DVT. Bilateral leg pain x 1 week, left leg swelling SIDE PERFORMED: Bilateral TECHNIQUE: The lower extremity deep venous system is examined utilizing real time linear array sonog lindsey with graded compression, doppler sonography and color-flow sonography. VESSELS IMAGED: External Iliac Vein (EIV) Common Femoral Vein Deep Femoral Vein Greater Saphenous Vein * Femoral Vein Popliteal Vein Small Saphenous Vein * Proximal Calf Veins (* superficial vessels) Grayscale, color doppler, spectral doppler imaging performed of the deep veins of the lower extremiti es. There is normal flow, compressibility, vascular waveforms. Right Leg: Appears negative for DVT at this time Left Leg: Appears negative for DVT at this time IMPRESSION: No sonographic evidence of deep venous thrombosis within either lower extremity.
--- NOTE | 2019-03-06 07:42 | P.MSEPDOC ---
Presenting Problems - Arrival Data Date of Arrival on Unit: 02/19/19 Time of Arrival on Unit: 10:20 Mode of Transport: Portable - Complaint OB-Reason for Admission/Chief Complaint: Headache, Pain Comment: lower abdominal cramping, headache Medical History - Information : 3 Para: 2 Number of Living Children: 2 - Gestational Age Gestational Age by CARL (wks/days): 22 Weeks and 1 Days Review of Systems - Review of Systems Constitutional: No problems Breast: No problems ENT: No problems Cardiovascular: No problems Respiratory: No problems Gastrointestinal: No problems Genitourinary: Dysuria Musculoskeletal: No problems Neurological: No problems Skin: No problems Vital Signs - Temperature Temperature: 97.6 F Temperature Source: Temporal Artery Scan - Pulse Right Sitting Brachial Pulse Rate: 89 Pulse Assessment Method: Automatic Cuff - Respirations Respiratory Rate: 16 Oxygen Delivery Method: Room Air O2 Sat by Pulse Oximetry: 98 - Blood Pressure Right Arm Sitting Blood Pressure: 117/71 Blood Pressure Mean: 86 Blood Pressure Source: Automatic Cuff Medical Screen Scoring (Pre) - Cervical Exam Dilation: Exam Deferred Effacement: Exam Deferred - Uterine Contractions Frequency: N/A Duration: N/A Intensity: N/A - Maternal Vital Signs Maternal Temperature: N/A Maternal Blood Pressure: N/A Maternal Respirations: N/A - Maternal Trauma Maternal Trauma: N/A - Assessment - Baby A Baseline FHR: 135 Position: N/A Station: N/A - Total Score - Baby A Total Score - Baby A: 0 - Level of Risk - Baby A Level of Risk - Baby A: N/A - Pain Assessment Pain Location and Character: Lower, Abdomen Pain Scale Used: Numeric (1 - 10) Pain Intensity: 3 Pain Management Goal: 0 Pain Description: Cramping Pain Radiation Location: 0 Pain Frequency: Intermittent Pain Duration: 2 Pain Duration Units: Days Pain Behavior: None Exhibited Effects of Pain: 0 Pain Aggravating Factors: None Physician Notification (Pre) - Physician Notified Physician Notified Date: 02/19/19 Physician Notified Time: 12:04 Spoke With: Dr Acosta New Order Received: Yes (discharge) - Notification Comment Comment: ua, bilateral LE venous doppler Disposition - Disposition OB Disposition: Discharge to home Discharge Date: 02/19/19 Discharge Time: 12:05 I agree with the RN Medical Screening Exam: Yes Risk & Benefit of care provided described in d/c instruction: Yes Diagnosis: FALSE LABOR, UNSPECIFIED
== END 2019-02-19 12:07 | disposition home or self-care (01) ==
LOC: FBPOP 10:16
PROVIDERS: ATTEND Obstetrics & Gynecology
DX: O47.02 False labor before 37 completed weeks of gestation, second trimester (principal); Z3A.22 22 weeks gestation of pregnancy
CPT/HCPCS: 81003; 93970; G0463; 99213

== ENCOUNTER → 2019-04-04 | Outpatient (CLI) | payer OTHER ==
[2019-04-04 18:11] LABS: Appearance,Urine Clear (Clear); Bilirubin,Urine Negative (Negative); Blood,Urine Negative (Negative); Color,Urine Yellow; Glucose,Urine (UA) Negative (Negative); Ketones,Urine 1+ (Negative); Leukocyte Esterase,Urine Negative (Negative); Nitrite,Urine Negative (Negative); Protein,Urine Negative (Negative); Specific Gravity,Urine 1.016 (1.001-1.035); Urobilinogen,Urine <2.0 mg/dL (<2.0)
[2019-04-04 20:30] VITALS: BP 120/80; PULSE 78; RESP 18; TEMP 98.5
--- NOTE | 2019-05-19 12:39 | P.MSEPDOC ---
Presenting Problems - Arrival Data Date of Arrival on Unit: 04/04/19 Time of Arrival on Unit: 16:36 Mode of Transport: Ambulatory - Complaint OB-Reason for Admission/Chief Complaint: Pain Comment: pt presents to triage from complaining of back pressure and pain that radiates. around by hips and to pelvis. states is also feeling tightening and pressure in entire. uterus. rates pain at 7 of 10 overall Medical History - Information : 3 Para: 2 Term: 2 : 0 Abortions: Spontaneous or Elective: 0 Number of Living Children: 2 - Gestational Age Gestational Age by CARL (wks/days): 28 Weeks and 3 Days Review of Systems - Review of Systems Constitutional: No problems Breast: No problems ENT: No problems Cardiovascular: No problems Respiratory: No problems Gastrointestinal: No problems Genitourinary: No problems Musculoskeletal: No problems Neurological: No problems Comment: pt has pattened healing peeling sunburn on abdomen. states is from the sun coming through the mesh of her bathing suit Vital Signs - Temperature Temperature: 98.5 F Temperature Source: Oral - Pulse Pulse Oximetery Pulse Rate: 78 Pulse Assessment Method: Automatic Cuff - Respirations Respiratory Rate: 18 Oxygen Delivery Method: Room Air - Blood Pressure Right Arm Blood Pressure: 120/80 Blood Pressure Mean: 93 Blood Pressure Source: Automatic Cuff Medical Screen Scoring (Pre) - Cervical Exam Dilation: 0 cm = 0 Membranes: Intact - Uterine Contractions Frequency: > 5 minutes apart = 1 Duration: N/A Intensity: N/A - Maternal Vital Signs Maternal Temperature: N/A Maternal Blood Pressure: N/A Signs of Preeclampsia: N/A Maternal Respirations: N/A - Maternal Trauma Maternal Trauma: N/A - Assessment - Baby A Baseline FHR: 135 Heart Rate - NICHD Category: Category I (Normal) = 0 NST: Reactive Position: N/A Station: N/A - Total Score - Baby A Total Score - Baby A: 1 - Total Score - Baby B Total Score - Baby B: 1 - Total Score - Baby C Total Score - Baby C: 1 - Level of Risk - Baby A Level of Risk - Baby A: Low (0-5) - Level of Risk - Baby B Level of Risk - Baby B: Low (0-5) - Level of Risk - Baby C Level of Risk - Baby C: Low (0-5) Physician Notification (Pre) - Physician Notified Physician Notified Date: 04/04/19 Physician Notified Time: 17:45 Physician/Practitioner Notifed:: Dr Tate New Order Received: Yes - Notification Comment Comment: Dr Tate updated with pts reason for visit, pain, contractions not able to. palpated but tracing approx every 6-8 min. orders received to get UA, Vage exam and FFN. orally hydrate and call with results. Disposition - Disposition OB Disposition: Triage Discharge Date: 04/04/19 Discharge Time: 19:50 I agree with the RN Medical Screening Exam: Yes Risk & Benefit of care provided described in d/c instruction: Yes Diagnosis: FALSE LABOR BEFORE 37 COMPLETED WEEKS OF GEST, THIRD TRI
== END | disposition home or self-care (01) ==
LOC: FBPOP 16:36
PROVIDERS: ATTEND Obstetrics & Gynecology
DX: O47.03 False labor before 37 completed weeks of gestation, third trimester (principal); Z3A.28 28 weeks gestation of pregnancy
CPT/HCPCS: 59025; 82731; 81003; G0463; 99213

== ENCOUNTER 2019-05-18 12:26 | Outpatient (CLI) | payer OTHER ==
[2019-05-18 14:17] VITALS: BP 118/75; PULSE 88; RESP 16; TEMP 97.9
[2019-05-18 14:32] LABS: Appearance,Urine Clear (Clear); Bilirubin,Urine Negative (Negative); Blood,Urine Negative (Negative); Color,Urine Yellow; Glucose,Urine (UA) Negative (Negative); Ketones,Urine Negative (Negative); Leukocyte Esterase,Urine Negative (Negative); Nitrite,Urine Negative (Negative); PH, Urine 6.5 (5.0-8.0); Protein,Urine Negative (Negative); Specific Gravity,Urine 1.019 (1.001-1.035); Urobilinogen,Urine <2.0 mg/dL (<2.0)
--- NOTE | 2019-05-19 12:48 | P.MSEPDOC ---
Presenting Problems - Arrival Data Date of Arrival on Unit: 05/18/19 Time of Arrival on Unit: 12:26 Mode of Transport: Wheelchair - Complaint OB-Reason for Admission/Chief Complaint: Possible Onset of Labor, Pain Comment: pain in lowerback around sides to front of abdomen, vaginal pressure Medical History - Information : 3 Para: 2 Term: 2 : 0 Abortions: Spontaneous or Elective: 0 Number of Living Children: 2 - Gestational Age Gestational Age by CARL (wks/days): 34 Weeks and 5 Days Review of Systems - Review of Systems Constitutional: No problems Breast: No problems ENT: No problems Cardiovascular: No problems Respiratory: No problems Gastrointestinal: No problems Genitourinary: No problems Musculoskeletal: No problems Neurological: No problems Skin: No problems Vital Signs - Temperature Temperature: 97.9 F Temperature Source: Temporal Artery Scan - Pulse Right Pulse Rate: 88 - Respirations Respiratory Rate: 16 Oxygen Delivery Method: Room Air O2 Sat by Pulse Oximetry: 97 - Blood Pressure Right Arm Blood Pressure: 118/75 Blood Pressure Mean: 89 Blood Pressure Source: Automatic Cuff Medical Screen Scoring (Pre) - Cervical Exam Dilation: 1-3 cm = 1 Membranes: Intact - Uterine Contractions Frequency: > 5 minutes apart = 1 Duration: > 40 seconds = 2 Intensity: N/A - Assessment - Baby A Baseline FHR: 125 Heart Rate - NICHD Category: Category II (Indeterminate) = 3 NST: Reactive Position: N/A Station: N/A - Total Score - Baby A Total Score - Baby A: 7 - Total Score - Baby B Total Score - Baby B: 4 - Total Score - Baby C Total Score - Baby C: 4 - Level of Risk - Baby A Level of Risk - Baby A: Medium (6-9) - Level of Risk - Baby B Level of Risk - Baby B: Low (0-5) - Level of Risk - Baby C Level of Risk - Baby C: Low (0-5) Medical Screen Scoring (Post) - Cervical Exam Dilation: 1-3 cm = 1 Membranes: Intact - Uterine Contractions Frequency: < 36 weeks = 6 Duration: > 40 seconds = 2 - Assessment - Baby A Heart Rate: 125 Heart Rate - NICHD Category: Category I (Normal) = 0 NST: Reactive - Total Score Total Score - Baby A: 9 Total Score - Baby B: 9 Total Score - Baby C: 9 - Post Treatment Level of Risk Post Treatment Level of Risk - Baby A: Medium (6-9) Post Treatment Level of Risk - Baby B: Medium (6-9) Post Treatment Level of Risk - Baby C: Medium (6-9) Physician Notification (Post) - Physician Notified Physician Notified Date: 05/18/19 Physician Notified Time: 14:50 Spoke With: Lea New Order Received: Yes (january discharge) - Notification Comment Comment: variables spontaneously resolved before discharge, pt made no cervical change, discharged with instruction to rest, hydrate, no intercourse until sees Dr. Acosta at scheduled appt WEd. Disposition - Disposition OB Disposition: Discharge to home, Written follow up instructions reviewed Discharge Date: 05/18/19 Discharge Time: 15:02 I agree with the RN Medical Screening Exam: Yes Risk & Benefit of care provided described in d/c instruction: Yes Diagnosis: FALSE LABOR BEFORE 37 COMPLETED WEEKS OF GEST, THIRD TRI
== END 2019-05-18 15:02 | disposition home or self-care (01) ==
LOC: FBPOP 12:26
PROVIDERS: ATTEND Obstetrics & Gynecology
DX: O47.03 False labor before 37 completed weeks of gestation, third trimester (principal); Z3A.34 34 weeks gestation of pregnancy
CPT/HCPCS: 59025; 81003; G0463; 99213

== ENCOUNTER 2019-05-24 15:05 | Outpatient (CLI) | payer OTHER ==
[2019-05-24] MEDS ORDERED: LACTATED RINGERS 1,000 ML IV SCH (16:00)
[2019-05-24 16:01] LABS: Appearance,Urine Clear (Clear); Bilirubin,Urine Negative (Negative); Blood,Urine Negative (Negative); Color,Urine Yellow; Glucose,Urine (UA) Negative (Negative); Ketones,Urine Negative (Negative); Leukocyte Esterase,Urine Negative (Negative); Nitrite,Urine Negative (Negative); PH, Urine 6.5 (5.0-8.0); Protein,Urine Negative (Negative); Specific Gravity,Urine 1.016 (1.001-1.035); Urobilinogen,Urine <2.0 mg/dL (<2.0)
[2019-05-24 16:11] VITALS: BP 123/72; PULSE 84; RESP 16; TEMP 97.9
--- NOTE | 2019-05-26 15:16 | P.MSEPDOC ---
Presenting Problems - Arrival Data Date of Arrival on Unit: 05/24/19 Time of Arrival on Unit: 15:05 Mode of Transport: Ambulatory - Complaint OB-Reason for Admission/Chief Complaint: Possible Onset of Labor Medical History - Information : 3 Para: 2 Term: 2 : 0 Abortions: Spontaneous or Elective: 0 Number of Living Children: 2 - Gestational Age Gestational Age by CARL (wks/days): 35 Weeks and 4 Days Review of Systems - Review of Systems Constitutional: No problems Breast: No problems ENT: No problems Cardiovascular: No problems Respiratory: No problems Gastrointestinal: No problems Genitourinary: No problems Musculoskeletal: No problems Neurological: No problems Skin: No problems Vital Signs - Temperature Temperature: 97.9 F Temperature Source: Oral - Pulse Right Brachial Pulse Rate: 84 Pulse Assessment Method: Automatic Cuff - Respirations Respiratory Rate: 16 Oxygen Delivery Method: Room Air - Blood Pressure Right Arm Blood Pressure: 123/72 Blood Pressure Mean: 89 Blood Pressure Source: Automatic Cuff Medical Screen Scoring (Pre) - Cervical Exam Dilation: 1-3 cm = 1 Membranes: Intact - Uterine Contractions Frequency: > 5 minutes apart = 1 Duration: N/A Intensity: N/A - Maternal Vital Signs Maternal Temperature: N/A Signs of Preeclampsia: N/A Maternal Respirations: N/A - Maternal Trauma Maternal Trauma: N/A - Assessment - Baby A Baseline FHR: 125 Heart Rate - NICHD Category: Category I (Normal) = 0 NST: Reactive - Total Score - Baby A Total Score - Baby A: 2 - Total Score - Baby B Total Score - Baby B: 2 - Total Score - Baby C Total Score - Baby C: 2 - Level of Risk - Baby A Level of Risk - Baby A: Low (0-5) - Level of Risk - Baby B Level of Risk - Baby B: Low (0-5) - Level of Risk - Baby C Level of Risk - Baby C: Low (0-5) Physician Notification (Pre) - Physician Notified Physician Notified Date: 05/24/19 Physician Notified Time: 15:51 Physician/Practitioner Notifed:: Carlene Spoke With: Carlene New Order Received: Yes - Notification Comment Comment: pt c/o contractions rates pain at 8 IV hydration ordered Physician Notification (Post) - Physician Notified Physician Notified Date: 05/24/19 Physician Notified Time: 16:32 Physician/Practitioner Notified:: Carlene Spoke With: Carlene New Order Received: Yes - Notification Comment Comment: pt may go home if no cervical change Disposition - Disposition Discharge Date: 05/24/19 Discharge Time: 16:49 I agree with the RN Medical Screening Exam: Yes Risk & Benefit of care provided described in d/c instruction: Yes Diagnosis: FALSE LABOR BEFORE 37 COMPLETED WEEKS OF GEST, THIRD TRI
== END 2019-05-24 16:50 | disposition home or self-care (01) ==
LOC: FBPOP 15:05
PROVIDERS: ATTEND Obstetrics & Gynecology Obstetrics
DX: O47.03 False labor before 37 completed weeks of gestation, third trimester (principal); Z3A.35 35 weeks gestation of pregnancy
CPT/HCPCS: 59025; 96360; 81003; G0463; 99213

== ENCOUNTER 2019-06-01 23:36 | Outpatient (CLI) | payer OTHER ==
[2019-06-02 01:09] VITALS: BP 118/73; PULSE 90; RESP 16; TEMP 97.9
--- NOTE | 2019-06-02 10:42 | P.MSEPDOC ---
Presenting Problems - Arrival Data Date of Arrival on Unit: 06/02/19 Time of Arrival on Unit: 23:36 Mode of Transport: Ambulatory - Complaint OB-Reason for Admission/Chief Complaint: Possible Onset of Labor Medical History - Information : 3 Para: 2 Term: 2 : 0 Abortions: Spontaneous or Elective: 0 Number of Living Children: 2 - Gestational Age Gestational Age by CARL (wks/days): 36 Weeks and 6 Days Review of Systems - Review of Systems Constitutional: No problems Breast: No problems ENT: No problems Cardiovascular: No problems Respiratory: No problems Gastrointestinal: No problems Genitourinary: No problems Musculoskeletal: No problems Neurological: No problems Skin: No problems Vital Signs - Temperature Temperature: 97.9 F Temperature Source: Oral - Pulse Right Brachial Pulse Rate: 90 Pulse Assessment Method: Automatic Cuff - Respirations Respiratory Rate: 16 O2 Sat by Pulse Oximetry: 99 - Blood Pressure Right Arm Blood Pressure: 118/73 Blood Pressure Mean: 88 Blood Pressure Source: Automatic Cuff Medical Screen Scoring (Pre) - Cervical Exam Dilation: 1-3 cm = 1 Membranes: Intact - Uterine Contractions Frequency: > 5 minutes apart = 1 Duration: N/A Intensity: N/A - Maternal Vital Signs Maternal Temperature: N/A Maternal Blood Pressure: N/A Signs of Preeclampsia: N/A Maternal Respirations: N/A - Maternal Trauma Maternal Trauma: N/A - Assessment - Baby A Baseline FHR: 120 Heart Rate - NICHD Category: Category I (Normal) = 0 NST: Reactive Position: N/A Station: N/A - Total Score - Baby A Total Score - Baby A: 2 - Total Score - Baby B Total Score - Baby B: 2 - Total Score - Baby C Total Score - Baby C: 2 - Level of Risk - Baby A Level of Risk - Baby A: Low (0-5) - Level of Risk - Baby B Level of Risk - Baby B: Low (0-5) - Level of Risk - Baby C Level of Risk - Baby C: Low (0-5) Physician Notification (Pre) - Physician Notified Physician Notified Date: 06/02/19 Physician Notified Time: 00:54 Physician/Practitioner Notifed:: Dr. Acosta Spoke With: Dr. Acosta New Order Received: Yes - Notification Comment Comment: Dr. Acosta called and given report on pt in triage. Pt c/o. VS WNL. Reactive NST. Vag exam of /-2 with no change after one hour. Orders receieved to discharge pt to home. To instruct pt to refrain from intercourse and to keep next apt. Disposition - Disposition OB Disposition: Physician follow up in office, Discharge to home Discharge Date: 06/02/19 Discharge Time: 01:04 I agree with the RN Medical Screening Exam: Yes Risk & Benefit of care provided described in d/c instruction: Yes Diagnosis: FALSE LABOR BEFORE 37 COMPLETED WEEKS OF GEST, THIRD TRI
== END 2019-06-02 01:04 | disposition home or self-care (01) ==
LOC: FBPOP 23:36
PROVIDERS: ATTEND Obstetrics & Gynecology
DX: O47.03 False labor before 37 completed weeks of gestation, third trimester (principal); Z3A.36 36 weeks gestation of pregnancy
CPT/HCPCS: 59025; G0463; 99213

== ENCOUNTER 2019-06-05 11:25 | Outpatient (CLI) | payer OTHER ==
[2019-06-05 14:22] VITALS: BP 130/88; PULSE 84; RESP 18; TEMP 98.3
--- NOTE | 2019-07-15 08:11 | P.MSEPDOC ---
Presenting Problems - Arrival Data Date of Arrival on Unit: 06/05/19 Time of Arrival on Unit: 11:30 Mode of Transport: Ambulatory - Complaint OB-Reason for Admission/Chief Complaint: Possible Onset of Labor Comment: admitted with c/o lower back and tailbone and hip pains onset last night. states she thinks she is having contractions. has been having contx off and on for last several days. last vag exam 3 cm and 70% per dr enriquez last week. Medical History - Information : 3 Para: 2 Term: 2 : 0 Abortions: Spontaneous or Elective: 0 Number of Living Children: 2 - Gestational Age Gestational Age by CARL (wks/days): 37 Weeks and 2 Days Review of Systems - Review of Systems Constitutional: No problems Breast: No problems ENT: No problems Cardiovascular: No problems Respiratory: No problems Gastrointestinal: No problems Genitourinary: No problems Musculoskeletal: No problems Neurological: No problems Skin: No problems Comment: hx of PIH with last pregnany. hx of cholysystectomy 2016. hx of migraines. pt has very flat affect. Vital Signs - Temperature Temperature: 98.3 F Temperature Source: Oral - Pulse Right Brachial Pulse Rate: 84 Pulse Assessment Method: Automatic Cuff - Respirations Respiratory Rate: 18 Oxygen Delivery Method: Room Air O2 Sat by Pulse Oximetry: 97 - Blood Pressure Right Arm Blood Pressure: 130/88 Blood Pressure Mean: 102 Blood Pressure Source: Automatic Cuff Medical Screen Scoring (Pre) - Cervical Exam Dilation: 1-3 cm = 1 Membranes: Intact - Uterine Contractions Frequency: N/A Duration: N/A Intensity: N/A - Maternal Vital Signs Maternal Temperature: N/A Maternal Blood Pressure: N/A Signs of Preeclampsia: N/A Maternal Respirations: N/A - Maternal Trauma Maternal Trauma: N/A - Assessment - Baby A Baseline FHR: 125 Heart Rate - NICHD Category: Category I (Normal) = 0 NST: Reactive Position: N/A Station: N/A - Total Score - Baby A Total Score - Baby A: 1 - Total Score - Baby B Total Score - Baby B: 1 - Total Score - Baby C Total Score - Baby C: 1 - Level of Risk - Baby A Level of Risk - Baby A: Low (0-5) - Level of Risk - Baby B Level of Risk - Baby B: Low (0-5) - Level of Risk - Baby C Level of Risk - Baby C: Low (0-5) Physician Notification (Pre) - Physician Notified Spoke With: zoe New Order Received: Yes - Notification Comment Comment: dr enriquez notified of vitals, nst, contractions, vag exam, appt sched tomorrow am. recheck cervix in one hour and recheck b/p and lmay disch home if no cerv change. Medical Screen Scoring (Post) - Cervical Exam Dilation: 1-3 cm = 1 Membranes: Intact - Uterine Contractions Frequency: > 5 minutes apart = 1 Duration: N/A Intensity: N/A - Maternal Vital Signs Maternal Temperature: N/A Maternal Blood Pressure: N/A Signs of Preeclampsia: N/A Maternal Respirations: N/A - Pain Assessment Pain Location and Character: Lower, Back, Hip, Buttock, Groin Pain Scale Used: Numeric (1 - 10) Pain Intensity: 5 Pain Description: *Acute Pain Frequency: Constant Pain Duration: 12 Pain Duration Units: Hours Pain Behavior: None Exhibited, Vocalization Pain Aggravating Factors: Contractions Non-Pharmacological Interventions: Darkened Room - Maternal Trauma Maternal Trauma: N/A - Assessment - Baby A Heart Rate: 125 Heart Rate - NICHD Category: Category I (Normal) = 0 NST: Reactive Position: N/A Station: N/A - Total Score Total Score - Baby A: 2 Total Score - Baby B: 2 Total Score - Baby C: 2 - Post Treatment Level of Risk Post Treatment Level of Risk - Baby A: Low (0-5) Post Treatment Level of Risk - Baby B: N/A Post Treatment Level of Risk - Baby C: N/A Physician Notification (Post) - Physician Notified Physician Notified Time: 12:10 Spoke With: zoe - Notification Comment Comment: discharge home Disposition - Disposition OB Disposition: Physician follow up in office, Discharge to home Discharge Date: 06/05/19 Discharge Time: 13:50 I agree with the RN Medical Screening Exam: Yes Risk & Benefit of care provided described in d/c instruction: Yes Diagnosis: FALSE LABOR AT OR AFTER 37 COMPLETED WEEKS OF GESTATION
== END 2019-06-05 13:50 | disposition home or self-care (01) ==
LOC: FBPOP 11:25
PROVIDERS: ATTEND Obstetrics & Gynecology
DX: O47.1 False labor at or after 37 completed weeks of gestation (principal); Z3A.37 37 weeks gestation of pregnancy
CPT/HCPCS: 59025; G0463; 99213

== ENCOUNTER 2019-06-13 20:56 | Outpatient (CLI) | payer OTHER ==
[2019-06-14 00:08] VITALS: PULSE 87; RESP 16; TEMP 98
[2019-06-14 00:28] VITALS: BP 133/85
--- NOTE | 2019-07-15 08:08 | P.MSEPDOC ---
Presenting Problems - Arrival Data Date of Arrival on Unit: 06/14/19 Time of Arrival on Unit: 20:56 Mode of Transport: Wheelchair - Complaint OB-Reason for Admission/Chief Complaint: Possible Onset of Labor Comment: presents to triage with contractions started around 630 pm now 3-4 min apart. had appt today with Dr Acosta today exam at office 3-4 70% and Dr Acosta strippend her membranes. Medical History - Information : 3 Para: 2 Term: 2 : 0 Abortions: Spontaneous or Elective: 0 Number of Living Children: 2 - Gestational Age Gestational Age by CARL (wks/days): 38 Weeks and 4 Days - History Comment: 2 prior vag deliveries after inductions for both with epidurals Review of Systems - Review of Systems Constitutional: No problems Breast: No problems ENT: No problems Cardiovascular: No problems Respiratory: No problems Gastrointestinal: No problems Genitourinary: No problems Musculoskeletal: No problems Neurological: No problems Skin: No problems Vital Signs - Temperature Temperature: 98.0 F Temperature Source: Oral - Pulse Right Radial Pulse Rate: 87 Pulse Assessment Method: Automatic Cuff - Respirations Respiratory Rate: 16 Oxygen Delivery Method: Room Air O2 Sat by Pulse Oximetry: 98 - Blood Pressure Right Arm Blood Pressure: 133/85 Blood Pressure Mean: 101 Medical Screen Scoring (Pre) - Cervical Exam Dilation: 4-7 cm = 2 Effacement: More than 50% = 2 Membranes: Intact - Uterine Contractions Frequency: > 5 minutes apart = 1 Duration: > 40 seconds = 2 - Maternal Vital Signs Maternal Blood Pressure: N/A Signs of Preeclampsia: N/A Maternal Respirations: N/A - Maternal Trauma Maternal Trauma: N/A - Assessment - Baby A Baseline FHR: 115 Heart Rate - NICHD Category: Category I (Normal) = 0 NST: Reactive Position: N/A Station: N/A - Total Score - Baby A Total Score - Baby A: 7 - Total Score - Baby B Total Score - Baby B: 7 - Total Score - Baby C Total Score - Baby C: 7 - Level of Risk - Baby A Level of Risk - Baby A: Medium (6-9) - Level of Risk - Baby B Level of Risk - Baby B: Medium (6-9) - Level of Risk - Baby C Level of Risk - Baby C: Medium (6-9) Physician Notification (Pre) - Physician Notified Physician Notified Date: 06/13/19 Physician Notified Time: 21:50 Physician/Practitioner Notifed:: Dr Acosta New Order Received: Yes - Notification Comment Comment: Dr Acosta updated per phone pts reason for visit is contractions. VE 4cm 70% -3. nst reactive cat 1 fht. contractions approx every 5 min. pain 8./10. plan to recheck. cervix at 2230. if change admit for labor. if unchanged pt may discharge home. repeat Cervical exam after 3 hours unchanged. cervix remains posterior. pt is comfortable with going home for early labor and will return when contractions strengthen or increase in frequeny Disposition - Disposition OB Disposition: Physician follow up in office, Discharge to home Discharge Date: 06/14/19 Discharge Time: 23:40 I agree with the RN Medical Screening Exam: Yes Risk & Benefit of care provided described in d/c instruction: Yes Diagnosis: FALSE LABOR AT OR AFTER 37 COMPLETED WEEKS OF GESTATION
== END 2019-06-13 23:40 | disposition home or self-care (01) ==
LOC: FBPOP 20:56
PROVIDERS: ATTEND Obstetrics & Gynecology
DX: O47.1 False labor at or after 37 completed weeks of gestation (principal); Z3A.38 38 weeks gestation of pregnancy
CPT/HCPCS: 59025; G0463; 99213

== ENCOUNTER 2019-06-14 23:39 | Inpatient (IN) | payer OTHER ==
[2019-06-15] MEDS ORDERED: OXYTOCIN 10 UNIT/ML 1 ML VIAL IM PRN (00:28)
[2019-06-15] MEDS ORDERED: TERBUTALINE 1 MG/ML VIAL SQ PRN (00:28)
[2019-06-15] MEDS ORDERED: LIDOCAINE 0.5% (PF) 5 MG/ML (50 ML SDV) SQ PRN (00:28)
[2019-06-15] MEDS ORDERED: CARBOPROST TROMETHAMINE 250 MCG/ML 1 ML AMP IM PRN (00:28)
[2019-06-15] MEDS ORDERED: METHYLERGONOVINE 0.2 MG/ML 1 ML AMP IM PRN (00:28)
[2019-06-15] MEDS: LACTATED RINGERS 1,000 ML IV SCH ×3 (00:30→01:18)
[2019-06-15 00:40] VITALS: BMI 33.8
[2019-06-15 00:58] LABS: Basophils # (A) 0.1 k/uL (0-0.2); Basophils % (A) 1 %; Eosinophils # (A) 0.1 k/uL (0-0.7); Eosinophils % (A) 1 %; HCT 32.7 % (34.0-46.0); HGB 11.1 gm/dL (11.4-16.0); Lymphocytes # (A) 1.8 k/uL (1.0-4.8); Lymphocytes % (A) 22 %; MCH 26.9 pg (25.0-35.0); MCHC 33.9 g/dL (31.0-37.0); MCV 79.2 fL (80.0-100.0); Mean Platelet Volume 8.1; Monocytes # (A) 0.5 k/uL (0-1.0); Monocytes % (A) 6 %; Neutrophils # (A) 5.7 k/uL (1.3-7.7); Neutrophils % (A) 69 %; Platelet Count 291 k/uL (150-450); Poikilocytosis Slight; RBC 4.13 m/uL (3.80-5.40); RDW 15.7 % (11.5-15.5); WBC 8.3 k/uL (3.8-10.6)
[2019-06-15] MEDS ORDERED: SODIUM CHLORIDE 0.9% 100 ML BAG ONE (01:05)
[2019-06-15] MEDS ORDERED: fentaNYL (PF) 50 MCG/ML 5 ML AMP ONE (01:05)
[2019-06-15] MEDS ORDERED: ROPIVACAINE 5MG/ML 20ML VIAL ONE (01:05)
[2019-06-15] MEDS ORDERED: OXYTOCIN 30 UNITS/500 ML NS 30 UNIT in SALINE 1 500ML.BAG IV SCH (04:15)
--- NOTE | 2019-06-15 06:57 | P.HPOB ---
History of Present Illness H&P Date: 06/15/19 Chief Complaint: Strong, regular uterine contractions This is a 23-year-old 3 para 2001 EDC 06/24/2019 at 38-5/7 weeks' gestation. Patient presented with strong regular uterine contractions, and was noted to be 5 cm in the triage area. Amnio sure testing was positive. The diagnosis of early labor was made and patient is admitted. She denied vaginal bleeding. Fetus is been active throughout the . Past medical history is significant for mild depression, interstitial cystitis, polycystic ovaries, rheumatoid arthritis. Past surgical history cholecystectomy 2015. Current medications vitamins. ALLERGIES: Zoloft to which she reports her throat swelling. Family history significant for hypertension and heart disease. Past obstetric history significant for normal spontaneous vaginal deliveries 2. 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 She has never been a smoker and denies alcohol or drug use. history is significant for blood type O+, rubella status immune. VDRL testing, urine culture, hepatitis B surface antigen, HIV testing, group B strep cultures all negative. One-hour Glucola 127. On exam this is a pleasant young female who is 5 foot 3 inches, 191 pounds, blood pressure on admission 135/89, vital signs stable and patient is afebrile. The general physical exam is within normal limits. Cervix on admission was 5 cm dilated, currently 9 cm dilated, -1 station, 90% effaced, vertex presentation. Artificial amniorrhexis of a large 4 bag reveals clear fluid. Patient is comfortable with epidural having been placed hours ago. heart rate is consistent with reactive NST. Impression: 38-5/7 weeks intrauterine , active spontaneous labor. All signs reassuring. A small amount of oxytocin augmentation has been started. Plan: Continue close maternal and surveillance. Anticipate normal spontaneous vaginal delivery. Review of Systems Constitutional: Reports as per HPI Past Medical History Past Medical History: No Reported History Additional Past Medical History / Comment(s): ABDOMINAL PAIN, migraines, chronic back pain History of Any Multi-Drug Resistant Organisms: MRSA Date of last positivie culture/infection: 04/23/18 MDRO Source:: face Past Surgical History: Cholecystectomy Past Anesthesia/Blood Transfusion Reactions: Motion Sickness Past Psychological History: Depression Additional Psychological History / Comment(s): . Smoking Status: Never smoker Past Alcohol Use History: Occasional Past Drug Use History: None Reported - Past Family History Mother Family Medical History: No Reported History Father Family Medical History: Hypertension Medications and Allergies Home Medications Medication Instructions Recorded Confirmed Type Acetaminophen [Tylenol] 325 mg PO Q4H 06/05/19 06/14/19 History Allergies Allergy/AdvReac Type Severity Reaction Status Date / Time sertraline [From Zoloft] Allergy Anaphylaxis Verified 06/14/19 23:51 Exam Vital Signs Temp Pulse Resp BP Pulse Ox 06/15/19 00:10 97 F L 87 18 135/89 97 Intake and Output 06/14/19 06/14/19 06/15/19 14:59 22:59 06:59 Other: Weight 86.636 kg See dictation under HPI please Results Result Diagrams: 06/15/19 00:20 Abnormal Lab Results - Last 24 Hours (Table) 06/15/19 Range/Units 00:20 Hgb 11.1 L (11.4-16.0) gm/dL Hct 32.7 L (34.0-46.0) % MCV 79.2 L (80.0-100.0) fL RDW 15.7 H (11.5-15.5) % Assessment and Plan Assessment: 38-5/7 weeks intrauterine , active spontaneous labor. All signs reassuring. Plan: Continue close maternal and surveillance. Anticipate normal spontaneous vaginal delivery. Time with Patient: Less than 30
[2019-06-15] MEDS: OXYTOCIN 20 UNITS/1000 ML NS 1,000 ML IV SCH ×2 (07:40→10:33)
[2019-06-15] MEDS ORDERED: SIMETHICONE 80 MG CHEWABLE PO PRN (07:51)
[2019-06-15] MEDS ORDERED: diphenhydrAMINE 50 MG/ML 1 ML VIAL IVP PRN ×2 (07:51)
[2019-06-15] MEDS ORDERED: diphenhydrAMINE 50 MG CAP PO PRN (07:51)
[2019-06-15] MEDS ORDERED: ZOLPIDEM 5 MG TAB PO PRN (07:51)
[2019-06-15] MEDS ORDERED: LANOLIN CREAM 5 GM TUBE TOPICAL PRN (07:51)
[2019-06-15] MEDS ORDERED: diphenhydrAMINE 25 MG CAP PO PRN (07:51)
[2019-06-15] MEDS ORDERED: WITCH HAZEL 1 EACH MED..PAD TOPICAL PRN (07:51)
[2019-06-15] MEDS ORDERED: BENZOCAINE/MENTHOL SPRAY 1 GM/SPRAY AEROSOL TOPICAL PRN (07:51)
[2019-06-15] MEDS ORDERED: HYDROCORTISONE 2.5% RECTAL CREAM 30 GM TUBE RECTAL PRN (07:51)
--- NOTE | 2019-06-15 07:51 | P.PROBDLV ---
Vaginal Delivery Note - . Vaginal Delivery Note: This is a 23-year-old white female 3 para 2001 EDC 06/24/2019 at 38-5/7 weeks' gestation. Patient presented with early labor and suspected amniorrhexis at home, clear fluid. Fetus is been active throughout the . Patient was scheduled for induction this Monday. [place] strep cultures negative, blood type O positive, please see dictated history and physical for details. Patient was admitted epidural was placed per her request. She progressed well through the first stage of labor with a small amount of oxytocin augmentation. She was judged to be completely dilated and began the second stage of labor at that time. With good maternal expulsive efforts, eventual station was noted to progress. Perineal body was prepped and draped in the usual sterile fashion. Infant's head delivered occiput posterior and restituted accordingly. There was a nuchal cord 1 that was reduced. The left or anterior shoulder was gently delivered from underneath the pubic symphysis at which time the oropharynx, nasopharynx, and external nares were all bulb suctioned on the perineal body. Patient is officially delivered of a liveborn male at 0740 hours. Umbilical cord was doubly clamped and ligated, he was handed to waiting nurses for evaluation where scores of 9 and 9 at one and 5 minutes respectively were given. Placenta delivered spontaneously, it was inspected and noted to be intact with trivascular cord at 0742 hours. At this time the perineal body was redraped. Careful Inspection of the cervix, vagina, perineum, periurethral, and perirectal areas revealed no lacerations and no defects. Fundus is firm and in the midline, symmetric and 18 week size upon completion of delivery. All sponge needle and instrument counts are correct. Patient and her are allowed to begin the bonding experience in the LDR. They are requesting circumcision further son.
[2019-06-15] MEDS: SENNOSIDES-DOCUSATE SODIUM 1 EACH TAB PO SCH ×2 (08:41→19:39)
[2019-06-15] MEDS: IBUPROFEN 600 MG TAB PO PRN ×3 (09:25→23:09)
[2019-06-15] MEDS: ACETAMINOPHEN TAB 325 MG TAB PO PRN ×2 (11:43→19:39)
[2019-06-16] MEDS: ACETAMINOPHEN TAB 325 MG TAB PO PRN ×2 (03:47→13:19)
--- NOTE | 2019-06-16 06:35 | P.PNOBGVD ---
Subjective - Subjective Principal diagnosis: day 1 Interval history: Feeling well, resting comfortably. being monitored for history of prolonged rupture of membranes Patient reports: Reports appetite normal, Reports voiding normally, Reports pain well controlled, Reports ambulating normally : doing well Objective - Latest Vital Signs Latest vital signs: Vital Signs Temp Pulse Resp BP Pulse Ox 06/16/19 00:00 98.1 F 64 14 123/65 06/15/19 20:00 98.7 F 84 16 125/76 06/15/19 16:00 98.3 F 67 20 133/82 98 06/15/19 11:50 97.8 F 76 18 146/91 98 06/15/19 09:50 97.0 F L 86 18 133/82 06/15/19 09:20 97.3 F L 81 18 143/97 06/15/19 08:50 97.2 F L 70 18 146/73 06/15/19 08:35 73 18 135/74 06/15/19 08:20 97.4 F L 67 18 131/74 06/15/19 08:05 97.1 F L 64 18 131/76 06/15/19 07:50 97.6 F 80 18 135/72 Intake and Output 06/15/19 06/15/19 06/16/19 14:59 22:59 06:59 Intake Total 57.667 Output Total 500 Balance -442.333 Intake: Intake, IV Titration 57.667 Amount Oxytocin 20 Units/1000 ml 57.667 Ns 1,000 ml @ Per Protocol IV .Q0M [facility] Rx#: [id number] Output: Emesis 250 Estimated Blood Loss 250 Other: Voiding Method Toilet # Voids 1 1 - Exam Extremities: Present: normal Abdomen: Present: normal appearance, soft Assessment and Plan (1) Normal vaginal delivery Current Visit: No Status: Acute Code(s): [id number] - SNOMED Code(s): 704524338 Plan: day #1 status post . Probable discharge home tomorrow. Routine care.
[2019-06-16] MEDS: IBUPROFEN 600 MG TAB PO PRN ×2 (08:12→16:08)
[2019-06-16] MEDS: SENNOSIDES-DOCUSATE SODIUM 1 EACH TAB PO SCH (08:12)
[2019-06-16 08:53] LABS: Basophils % (A) 1 %; Eosinophils # (A) 0.1 k/uL (0-0.7); Eosinophils % (A) 1 %; HCT 27.1 % (34.0-46.0); Hypochromasia Slight; Lymphocytes # (A) 1.7 k/uL (1.0-4.8); Lymphocytes % (A) 22 %; MCH 26.3 pg (25.0-35.0); MCHC 33.1 g/dL (31.0-37.0); MCV 79.5 fL (80.0-100.0); Mean Platelet Volume 8.3; Monocytes # (A) 0.4 k/uL (0-1.0); Monocytes % (A) 5 %; Neutrophils # (A) 5.3 k/uL (1.3-7.7); Neutrophils % (A) 69 %; Platelet Count 232 k/uL (150-450); Poikilocytosis Slight; RBC 3.41 m/uL (3.80-5.40); RDW 15.5 % (11.5-15.5); WBC 7.7 k/uL (3.8-10.6)
[2019-06-17] MEDS: IBUPROFEN 600 MG TAB PO PRN (01:16)
[2019-06-17] MEDS: SENNOSIDES-DOCUSATE SODIUM 1 EACH TAB PO SCH ×2 (02:25→07:34)
[2019-06-17] MEDS: ACETAMINOPHEN TAB 325 MG TAB PO PRN (07:33)
--- NOTE | 2019-06-17 07:50 | P.DS ---
Providers Date of admission: 06/15/19 00:09 Expected date of discharge: 06/17/19 Attending physician: Heather Acosta Primary care physician: Stated None Hospital Course: This is a 23-year-old white female 3 para 2001 EDC 06/24/2019 who presented with spontaneous amniorrhexis at 38-5/7 weeks' gestation. is remarkable for group B strep cultures negative, blood type O+, rubella status immune. Please see dictated history and physical for details. Patient was admitted, epidural was placed per her request. Oxytocin augmentation was started and titrated as appropriate. She went on to deliver vaginally a liveborn male with scores of 9 and 9 at one and 5 minutes respectively. He weighed 3670 g or 8 lbs. 1 oz. He was occiput posterior at the time of delivery. No lacerations or defects were encountered. Please see my dictated delivery note for details. This morning the patient and her are doing well. Circumcision has been performed. Patient is voiding, ambulating, passing flatus without difficulty. Vital signs are stable and she has remained afebrile. Lochia rubra is minimal to moderate. Pain is well-controlled with Motrin. Patient is judged to be in very good condition for discharge home. She will follow-up in the office with me in 6 weeks. I have reminded her no intercourse, tampons or douching. She will use [id number] Advil or Aleve, or Motrin as needed for pain. I've asked her to call me with any fevers shakes or chills, foul smelling or copious lochia, with the passage of large blood clots, with any pain not alleviated by [id number] products, or indeed with any concerns. We have briefly reviewed options for contraception and we will discuss this further in the office. Patient Condition at Discharge: Good Plan - Discharge Summary Discharge Rx Participant: No New Discharge Prescriptions: No Action Acetaminophen [Tylenol] 325 mg PO Q4H Discharge Medication List Acetaminophen [Tylenol] 325 mg PO Q4H 06/05/19 [History] Follow up Appointment(s)/Referral(s): Heather Acosta MD [STAFF PHYSICIAN] - 6 Weeks Discharge Disposition: HOME SELF-CARE
[2019-06-17 08:13] VITALS: BP 129/75; PULSE 72; RESP 18; TEMP 98.6
== END 2019-06-17 10:15 | disposition home or self-care (01) | DRG 807 ==
LOC: FBPOP 23:39 → 4FBP 06-15 00:09
PROVIDERS: ADMIT Obstetrics & Gynecology; ATTEND Obstetrics & Gynecology
PROC: 10E0XZZ Delivery of Products of Conception, External Approach (ICD-10-PCS; principal; 2019-06-15)
PROC: 00HU33Z Insertion of Infusion Device into Spinal Canal, Percutaneous Approach (ICD-10-PCS; 2019-06-15)
PROC: 3E0R3BZ Introduction of Anesthetic Agent into Spinal Canal, Percutaneous Approach (ICD-10-PCS; 2019-06-15)
DX: O42.02 Full-term premature rupture of membranes, onset of labor within 24 hours of rupture (principal); Z37.0 Single live birth; O69.81X0 Labor and delivery complicated by cord around neck, without compression, not applicable or unspecified; E28.2 Polycystic ovarian syndrome; O99.89 Other specified diseases and conditions complicating pregnancy, childbirth and the puerperium; Z3A.38 38 weeks gestation of pregnancy; M06.9 Rheumatoid arthritis, unspecified; G89.29 Other chronic pain; M54.9 Dorsalgia, unspecified; Z79.899 Other long term (current) drug therapy; Z86.59 Personal history of other mental and behavioral disorders; Z90.49 Acquired absence of other specified parts of digestive tract; Z87.440 Personal history of urinary (tract) infections; Z86.14 Personal history of Methicillin resistant Staphylococcus aureus infection; Z86.69 Personal history of other diseases of the nervous system and sense organs; Z88.8 Allergy status to other drugs, medicaments and biological substances; Z82.49 Family history of ischemic heart disease and other diseases of the circulatory system
CPT/HCPCS: 59025; 84112; 85025; 86850; 86900; 86901; 99213

== ENCOUNTER 2019-09-26 22:06 | Emergency (ER) | payer OTHER ==
[2019-09-26 22:14] VITALS: RESP 20
--- NOTE | 2019-09-26 22:49 | ED ---
Lower Extremity Injury HPI - General Chief Complaint: Extremity Injury, Lower Stated Complaint: Lft Ankle Injury Source: patient, family Mode of arrival: ambulatory Limitations: no limitations - History of Present Illness Initial Comments: patient states that she twisted her left ankle while in her driveway this evening. Patient states she has pain over the anterior aspect of the ankle joint. Patient denies any significant swelling bruising patient denies any injury to the head neck back or upper extremities. Patient denies pain at foot knee or hip of the affected side. Remaining review of systems negative. able to weight bear and ambulate. hx of previous left ankle fracture. BP noted to be elevated patient remainign ROS (-), Patient denies any recent fever, chills, shortness of breath, chest pain, back pain, abdominal pain, nausea or vomiting, numbness or tingling, dysuria or hematuria, constipation or diarrhea, headaches or visual changes, or any other complaints. - Related Data Home Medications Medication Instructions Recorded Confirmed Acetaminophen [Tylenol] 325 mg PO Q4H 06/05/19 06/14/19 Allergies Allergy/AdvReac Type Severity Reaction Status Date / Time sertraline [From Zoloft] Allergy Anaphylaxis Verified 09/26/19 22:14 Review of Systems ROS Statement: Those systems with pertinent positive or pertinent negative responses have been documented in the HPI. ROS Other: All systems not noted in ROS Statement are negative. Past Medical History Past Medical History: No Reported History Additional Past Medical History / Comment(s): ABDOMINAL PAIN, migraines, chronic back pain History of Any Multi-Drug Resistant Organisms: MRSA Date of last positivie culture/infection: 04/23/18 MDRO Source:: face Past Surgical History: Cholecystectomy Past Anesthesia/Blood Transfusion Reactions: Motion Sickness Past Psychological History: Depression Smoking Status: Never smoker Past Alcohol Use History: Occasional Past Drug Use History: None Reported - Past Family History Mother Family Medical History: No Reported History Father Family Medical History: Hypertension General Exam - General Exam Comments Initial Comments: General: The patient is awake and alert, in no distress, and does not appear acutely ill. Eye: Pupils are equal, round and reactive to light, extra-ocular movements are intact. No nystagmus. There is normal conjunctiva bilaterally. No signs of icterus. Cardiovascular: There is a regular rate and rhythm. No murmur, rub or gallop is appreciated. Respiratory: Lungs are clear to auscultation, respirations are non-labored, breath sounds are equal. No wheezes, stridor, rales, or rhonchi. Musculoskeletal: normal inspection of ankle b/l point localized tenderness over anterior aspect of the left ankle. No medial/lateral pain,swelling DP +2 b/l equal. Normal ROM, with mild tenderness of left ankle.Strength 5/5. Sensation intact. Neurological: A&O x 3. CN II-XII intact grosly, There are no obvious motor or sensory deficits. Coordination appears grossly intact. Speech is normal. Skin: Skin is warm and dry and no rashes or lesions are noted. Psychiatric: Cooperative, appropriate mood & affect, normal judgment. Limitations: no limitations Course Vital Signs 09/26/19 09/26/19 22:10 23:13 Temperature 97.9 F 97 F L Pulse Rate 78 89 Respiratory 20 20 Rate Blood Pressure 163/117 156/94 O2 Sat by Pulse 97 Oximetry Medical Decision Making - Medical Decision Making 23yo presenting for ankle pain. XR (-). Patient had christopher bandage applied discussed pcp f/u, rice instruction and ortho f/u for persistent symptoms. neurovascular intact. Patient found to have elevated blood pressure however asymptomatic. Patient pain could be contributing I feel treatment is not appropriate at this time given no symptoms however recommended patient obtained a blood pressure cuff a chewable and follow-up with primary care provider this week. Patient returned. Patient discussed patient verbalizes understanding and is discharged appearing well. Disposition Clinical Impression: Left ankle pain, Elevated blood pressure reading, Left ankle sprain Disposition: HOME SELF-CARE Condition: Good Additional Instructions: Please use medication as discussed. Please follow-up with family doctor in the next 2 days for ankle and blood pressure, if symptoms are persistent please follow-up with your orthopedic physician as discussed. Please return to emergency room if the symptoms increase or worsen or for any other concerns. Is patient prescribed a controlled substance at d/c from ED?: No Referrals: None,Stated [Primary Care Provider] - 1-2 days Time of Disposition: 22:48
--- NOTE | 2019-09-26 23:06 | XR ---
EXAMINATION TYPE: XR ankle complete LT DATE OF EXAM: 09/26/2019 COMPARISON: NONE HISTORY: Pain TECHNIQUE: 3 views FINDINGS: I see no fracture nor dislocation. Joint spaces are normal. Ankle mortise is anatomic. Soft tissues appear normal. IMPRESSION: Negative left ankle.
[2019-09-26 23:15] VITALS: BP 156/94; PULSE 89; TEMP 97
== END 2019-09-26 23:14 | disposition home or self-care (01) ==
LOC: EC 22:06
DX: S93.402A Sprain of unspecified ligament of left ankle, initial encounter (principal); R03.0 Elevated blood-pressure reading, without diagnosis of hypertension; G89.29 Other chronic pain; Z88.8 Allergy status to other drugs, medicaments and biological substances; Z79.891 Long term (current) use of opiate analgesic; Z86.14 Personal history of Methicillin resistant Staphylococcus aureus infection; Z87.81 Personal history of (healed) traumatic fracture; Z82.49 Family history of ischemic heart disease and other diseases of the circulatory system; X50.1XXA Overexertion from prolonged static or awkward postures, initial encounter; Y92.89 Other specified places as the place of occurrence of the external cause
CPT/HCPCS: 99283

== ENCOUNTER 2019-10-20 11:42 | Emergency (ER) | payer OTHER ==
[2019-10-20] MEDS ORDERED: diphenhydrAMINE 50 MG/ML 1 ML VIAL IVP STA (12:33)
[2019-10-20] MEDS ORDERED: METOCLOPRAMIDE 5 MG/ML 2 ML VIAL IVP STA (12:33)
[2019-10-20] MEDS ORDERED: SODIUM CHLORIDE 0.9% 1,000 ML IV STA (12:34)
--- NOTE | 2019-10-20 13:20 | ED ---
General Adult HPI - General Chief complaint: Headache Stated complaint: Migraine Time Seen by Provider: 10/20/19 11:57 Source: patient, RN notes reviewed Mode of arrival: wheelchair Limitations: no limitations - History of Present Illness Initial comments: 24-year-old female with a past medical history of abdominal pain, migraines, chronic back pain presents to the emergency department for a chief lien of migraine headache. Patient states she has a right sided headache. States it has been consistent for the past 5 days. States she has associated nausea vomiting as well as photosensitivity. Patient states her migraines usually go away after Motrin in a hot shower however this migraine does not seem to be improving. States she has tried several different migraine medications years ago but none of them seem to work so she has not been on Imitrex or any other abortive fastens. Patient did try to take Motrin and Tylenol without improvement. Denies neck stiffness. Denies fevers or chills.Patient has no other complaints at this time including shortness of breath, chest pain, abdominal pain, nausea or vomiting, headache, or visual changes. - Related Data Home Medications Medication Instructions Recorded Confirmed Acetaminophen [Tylenol] 325 mg PO Q4H 06/05/19 06/14/19 Allergies Allergy/AdvReac Type Severity Reaction Status Date / Time sertraline [From Zoloft] Allergy Anaphylaxis Verified 10/20/19 11:52 Review of Systems ROS Statement: Those systems with pertinent positive or pertinent negative responses have been documented in the HPI. ROS Other: All systems not noted in ROS Statement are negative. Past Medical History Past Medical History: No Reported History Additional Past Medical History / Comment(s): ABDOMINAL PAIN, migraines, chronic back pain History of Any Multi-Drug Resistant Organisms: MRSA Date of last positivie culture/infection: 04/23/18 MDRO Source:: face Past Surgical History: Cholecystectomy Past Anesthesia/Blood Transfusion Reactions: Motion Sickness Past Psychological History: Depression Smoking Status: Never smoker Past Alcohol Use History: Occasional Past Drug Use History: None Reported - Past Family History Mother Family Medical History: No Reported History Father Family Medical History: Hypertension General Exam Limitations: no limitations General appearance: alert, in no apparent distress Head exam: Present: atraumatic, normocephalic, normal inspection Eye exam: Present: normal appearance, PERRL, EOMI. Absent: scleral icterus, conjunctival injection, periorbital swelling ENT exam: Present: normal exam, mucous membranes moist Neck exam: Present: normal inspection, full ROM. Absent: tenderness, meningis mus, lymphadenopathy Respiratory exam: Present: normal lung sounds bilaterally. Absent: respiratory distress, wheezes, rales, rhonchi, stridor Cardiovascular Exam: Present: regular rate, normal rhythm, normal heart sounds. Absent: systolic murmur, diastolic murmur, rubs, gallop, clicks GI/Abdominal exam: Present: soft, normal bowel sounds. Absent: distended, tenderness, guarding, rebound, rigid Neurological exam: Present: alert, oriented X3, normal gait, other (GCS 15) Course Vital Signs 10/20/19 10/20/19 11:50 14:13 Temperature 97.9 F 97.5 F L Pulse Rate 68 69 Respiratory 18 16 Rate Blood Pressure 165/109 140/88 O2 Sat by Pulse 98 100 Oximetry Medical Decision Making - Medical Decision Making Patient presents with symptoms consistent of previous migraine including unilateral headache with associated photosensitivity and nausea with history of migraine. No sudden onset or maximal intensity at onset. However this is more prolonged than previous migraines therefore computed tomography scan was ordered after a negative hCG was obtained. This showed a normal scan of the brain. No acute lesion, mass effect or midline shift. Patient was given Toradol recommend ed Benadryl, currently sleeping, significant improvement in symptoms. Patient we discharged home to follow up with primary care. Discussed possible need for MRI and neurology referral. Discussed returning here if she has any worsening symptoms. - Lab Data Lab Results 10/20/19 Range/Units 12:41 Urine HCG, Qual Not Detected (Not Detectd) Disposition Clinical Impression: Headache Disposition: HOME SELF-CARE Condition: Good Instructions (If sedation given, give patient instructions): Acute Headache (ED) Additional Instructions: Please follow up with primary care in 1-2 days. If you have any worsening symptoms return to the emergency department. Is patient prescribed a controlled substance at d/c from ED?: No Referrals: Jarrell Zayas MD [STAFF PHYSICIAN] - 1-2 days Miya Nettles MD [STAFF PHYSICIAN] - 1-2 days Time of Disposition: 14:25
--- NOTE | 2019-10-20 14:00 | CT ---
EXAMINATION TYPE: CT brain wo con DATE OF EXAM: 10/20/2019 COMPARISON: Previous study dated 08/24/2016 HISTORY: Migraine, right sided headache CT DLP: 1099.4 mGycm Automated exposure control for dose reduction was used. FINDINGS: Central structures are midline. There is no evidence of hydrocephalus. No acute focal lesion, mass ef fect or midline shift is seen. I do not see evidence of intracranial blood. Visualized portions of the paranasal sinuses and mastoids are clear. The bony calvarium is intact. IMPRESSION: NORMAL CT SCAN OF THE BRAIN.
[2019-10-20] MEDS ORDERED: KETOROLAC 30 MG/ML 1 ML VIAL IVP STA (14:03)
[2019-10-20 14:16] VITALS: BP 140/88; PULSE 69; RESP 16; TEMP 97.5
== END 2019-10-20 14:39 | disposition home or self-care (01) ==
LOC: EC 11:42
DX: R51 Headache (principal); H53.149 Visual discomfort, unspecified; R11.2 Nausea with vomiting, unspecified; G89.29 Other chronic pain; Z88.8 Allergy status to other drugs, medicaments and biological substances; Z79.891 Long term (current) use of opiate analgesic; Z86.14 Personal history of Methicillin resistant Staphylococcus aureus infection; Z86.69 Personal history of other diseases of the nervous system and sense organs
CPT/HCPCS: 81025; 70450; 99284; 96374; 96375 ×2; 96361 ×2; J1200; J2765; J1885

== ENCOUNTER → 2019-10-24 | Outpatient (CLI) | payer OTHER ==
--- NOTE | 2019-10-24 15:20 | MR ---
EXAMINATION TYPE: MR brain wo/w con DATE OF EXAM: 10/24/2019 COMPARISON: MRI brain August 25, 2016. CT brain October 20, 2019 HISTORY: headache TECHNIQUE: Multiplanar, multisequence images of the brain and brainstem is performed without and with IV contras t, utilizing 9 mL intravenous Gadavist . FINDINGS: Diffusion weighted images demonstrate no evidence of a recent infarct or other diffusion ab normality. There is no extra-axial fluid collection or new significant white matter signal abnormali ty. Stable nonspecific 2 mm T2 hyperintense focus posterior left frontal deep white matter axial imag e 22 . The ventricular system and cisternal spaces are normal in size and appearance. The brain volu me is age appropriate. Midline structures demonstrate normal morphology. The craniocervical junction appears within normal limits. Post contrast images demonstrate no abnormal enhancement. The dural venous sinuses appear pa tent. Some distortion atrophy level of the globes is present. Visualized paranasal sinuses are clear. IMPRESSION: No significant change from prior MRI 2016. No new findings are evident.
== END | disposition home or self-care (01) ==
LOC: RADMRIMAIN 14:17
PROVIDERS: ATTEND Family Medicine
DX: R51 Headache (principal)
CPT/HCPCS: 70553; A9585

== ENCOUNTER 2019-10-28 16:21 | Emergency (ER) | payer OTHER ==
[2019-10-28 16:27] VITALS: TEMP 99.1
[2019-10-28] MEDS ORDERED: SODIUM CHLORIDE 0.9% 1,000 ML IV STA (17:35)
--- NOTE | 2019-10-28 18:05 | ED ---
General Adult HPI - General Chief complaint: Shortness of Breath Stated complaint: racing heart Time Seen by Provider: 10/28/19 17:20 Source: patient Mode of arrival: ambulatory Limitations: no limitations - History of Present Illness Initial comments: 24-year-old female patient presents to the emergency department today for evaluation of chest tightness, tachycardia, and shortness of breath. Patient states this started around 3 PM this afternoon. Patient states this persisted. Patient states she was driving when symptoms started. States that she did start a new blood pressure medication, hydrochlorothiazide on Monday. Patient denies any other new substances or exposures. Denies history of similar symptoms. She denies any chance of . She denies any cough or congestion. Denies fever or chills. Patient denies any recent rash, abdominal pain, nausea, vomiting, diarrhea, constipation, back pain, numbness, tingling, dizziness, w eakness, hematuria, dysuria, urinary urgency, urinary frequency, headache, visual changes, or any other complaints. - Related Data Home Medications Medication Instructions Recorded Confirmed Ammonium Lactate Lotion 1 applic TOPICAL DAILY 10/28/19 10/28/19 [Lac-Hydrin 12% Lotion] Blisovi Fe 1 tab PO DAILY 10/28/19 10/28/19 Hydrochlorothiazide 12.5 mg PO DAILY 10/28/19 10/28/19 Hydrocortisone Cream 1 applic TOPICAL DAILY 10/28/19 10/28/19 [Hydrocortisone 2.5% Cream] Minocycline HCl [Minocin] 100 mg PO DAILY 10/28/19 10/28/19 PARoxetine HCL [Paxil Cr] 37.5 mg PO DAILY 10/28/19 10/28/19 Triamcinolone 0.025% Cream 1 applic TOPICAL DAILY 10/28/19 10/28/19 [Kenalog 0.025% Cream] Allergies Allergy/AdvReac Type Severity Reaction Status Date / Time sertraline [From Zoloft] Allergy Anaphylaxis Verified 10/28/19 19:09 Review of Systems ROS Statement: Those systems with pertinent positive or pertinent negative responses have been documented in the HPI. ROS Other: All systems not noted in ROS Statement are negative. Past Medical History Past Medical History: No Reported History Additional Past Medical History / Comment(s): ABDOMINAL PAIN, migraines, chronic back pain History of Any Multi-Drug Resistant Organisms: MRSA Date of last positivie culture/infection: 04/23/18 MDRO Source:: face Past Surgical History: Cholecystectomy Past Anesthesia/Blood Transfusion Reactions: Motion Sickness Past Psychological History: Depression Smoking Status: Never smoker Past Alcohol Use History: Occasional Past Drug Use History: None Reported - Past Family History Mother Family Medical History: No Reported History Father Family Medical History: Hypertension General Exam Limitations: no limitations General appearance: alert, in no apparent distress, other (This is a well- developed, well-nourished adult female patient in no acute distress. Vital signs upon presentation are temperature 99.1F, pulse 98, respirations 20, blood pressure 156/93, pulse ox 97% on room air.) Eye exam: Present: normal appearance, PERRL, EOMI. Absent: scleral icterus, conjunctival injection, periorbital swelling ENT exam: Present: normal exam, normal oropharynx, mucous membranes moist Respiratory exam: Present: normal lung sounds bilaterally. Absent: respiratory distress, wheezes, rales, rhonchi, stridor Cardiovascular Exam: Present: regular rate, normal rhythm, normal heart sounds. Absent: systolic murmur, diastolic murmur, rubs, gallop, clicks GI/Abdominal exam: Present: soft, normal bowel sounds. Absent: distended, tenderness, guarding, rebound, rigid Neurological exam: Present: alert, oriented X3, CN II-XII intact Psychiatric exam: Present: normal affect, normal mood Skin exam: Present: warm, dry, intact, normal color. Absent: rash Course Vital Signs 10/28/19 10/28/19 10/28/19 16:24 16:27 17:27 Temperature 99.1 F Pulse Rate 98 96 86 Respiratory 20 20 20 Rate Blood Pressure 156/93 153/100 130/92 O2 Sat by Pulse 97 99 99 Oximetry 10/28/19 10/28/19 19:00 20:00 Temperature Pulse Rate 90 81 Respiratory 18 18 Rate Blood Pressure 132/93 126/83 O2 Sat by Pulse 96 97 Oximetry EKG Findings - EKG Comments: EKG Findings:: EKG obtained at 1634 shows normal sinus rhythm with a ventricular rate of 97, [place] interval 126, QRS duration 80, QT 354, QTC 449. No evidence of ST elevation or depression. Medical Decision Making - Medical Decision Making 24-year-old female patient percents to the emergency department today for evaluation of palpitations, racing heart, and shortness of breath. Physical examination is unremarkable. Telemetry monitoring was evaluated and showed heart rates ranging from the mid 90s to around 1:15. This is all sinus rhythm. Labs reviewed and are unremarkable. EKG showed sinus rhythm. We did discuss signs and results. We discussed hydrochlorothiazide as a cause for her symptoms. She'll be discharged home with her primary care physician for recheck in 1-2 days. Return parameters were discussed in detail. She verbalizes understanding and agrees with this plan. - Lab Data Result diagrams: 10/28/19 17:55 10/28/19 17:55 Lab Results 10/28/19 10/28/19 10/28/19 Range/Units 17:55 17:55 17:55 WBC 9.8 (3.8-10.6) k/uL RBC 5.28 (3.80-5.40) m/uL Hgb 14.5 (11.4-16.0) gm/dL Hct 42.8 (34.0-46.0) % MCV 81.2 (80.0-100.0) fL MCH 27.4 (25.0-35.0) pg MCHC 33.8 (31.0-37.0) g/dL RDW 15.2 (11.5-15.5) % Plt Count 459 H (150-450) k/uL Neutrophils % 65 % Lymphocytes % 24 % Monocytes % 7 % Eosinophils % 1 % Basophils % 1 % Neutrophils # 6.4 (1.3-7.7) k/uL Lymphocytes # 2.3 (1.0-4.8) k/uL Monocytes # 0.6 (0-1.0) k/uL Eosinophils # 0.1 (0-0.7) k/uL Basophils # 0.1 (0-0.2) k/uL PT 9.8 (9.0-12.0) sec INR 0.9 (<1.2) APTT 24.8 (22.0-30.0) sec Sodium 138 (137-145) mmol/L Potassium 4.2 (3.5-5.1) mmol/L Chloride 102 (98-107) mmol/L Carbon Dioxide 23 (22-30) mmol/L Anion Gap 13 mmol/L BUN 16 (7-17) mg/dL Creatinine 0.73 (0.52-1.04) mg/dL Est GFR (CKD-EPI)AfAm >90 (>60 ml/min/1.73 sqM) Est GFR (CKD-EPI)NonAf >90 (>60 ml/min/1.73 sqM) Glucose 87 (74-99) mg/dL Calcium 9.4 (8.4-10.2) mg/dL Magnesium 2.2 (1.6-2.3) mg/dL Total Bilirubin 0.3 (0.2-1.3) mg/dL AST 30 (14-36) U/L ALT 31 (4-34) U/L Alkaline Phosphatase 120 (38-126) U/L Troponin I (0.000-0.034) ng/mL Total Protein 8.3 H (6.3-8.2) g/dL Albumin 4.7 (3.5-5.0) g/dL TSH 1.780 (0.465-4.680) mIU/L Urine Color Urine Appearance (Clear) Urine pH (5.0-8.0) Ur Specific [place] (1.001-1.035) Urine Protein (Negative) Urine Glucose (UA) (Negative) Urine Ketones (Negative) Urine Blood (Negative) Urine Nitrite (Negative) Urine Bilirubin (Negative) Urine Urobilinogen (<2.0) mg/dL Ur Leukocyte Esterase (Negative) Urine RBC (0-5) /hpf Urine WBC (0-5) /hpf Ur Squamous Epith Cells (0-4) /hpf Hyaline Casts (0-2) /lpf Urine Mucus (None) /hpf Urine HCG, Qual (Not Detectd) 10/28/19 10/28/19 10/28/19 Range/Units 17:55 18:20 18:20 WBC (3.8-10.6) k/uL RBC (3.80-5.40) m/uL Hgb (11.4-16.0) gm/dL Hct (34.0-46.0) % MCV (80.0-100.0) fL MCH (25.0-35.0) pg MCHC (31.0-37.0) g/dL RDW (11.5-15.5) % Plt Count (150-450) k/uL Neutrophils % % Lymphocytes % % Monocytes % % Eosinophils % % Basophils % % Neutrophils # (1.3-7.7) k/uL Lymphocytes # (1.0-4.8) k/uL Monocytes # (0-1.0) k/uL Eosinophils # (0-0.7) k/uL Basophils # (0-0.2) k/uL PT (9.0-12.0) sec INR (<1.2) APTT (22.0-30.0) sec Sodium (137-145) mmol/L Potassium (3.5-5.1) mmol/L Chloride (98-107) mmol/L Carbon Dioxide (22-30) mmol/L Anion Gap mmol/L BUN (7-17) mg/dL Creatinine (0.52-1.04) mg/dL Est GFR (CKD-EPI)AfAm (>60 ml/min/1.73 sqM) Est GFR (CKD-EPI)NonAf (>60 ml/min/1.73 sqM) Glucose (74-99) mg/dL Calcium (8.4-10.2) mg/dL Magnesium (1.6-2.3) mg/dL Total Bilirubin (0.2-1.3) mg/dL AST (14-36) U/L ALT (4-34) U/L Alkaline Phosphatase (38-126) U/L Troponin I <0.012 (0.000-0.034) ng/mL Total Protein (6.3-8.2) g/dL Albumin (3.5-5.0) g/dL TSH (0.465-4.680) mIU/L Urine Color Yellow Urine Appearance Cloudy H (Clear) Urine pH 6.0 (5.0-8.0) Ur Specific [place] 1.026 (1.001-1.035) Urine Protein Trace H (Negative) Urine Glucose (UA) Negative (Negative) Urine Ketones Negative (Negative) Urine Blood Negative (Negative) Urine Nitrite Negative (Negative) Urine Bilirubin Negative (Negative) Urine Urobilinogen <2.0 (<2.0) mg/dL Ur Leukocyte Esterase Negative (Negative) Urine RBC 1 (0-5) /hpf Urine WBC 3 (0-5) /hpf Ur Squamous Epith Cells 14 H (0-4) /hpf Hyaline Casts 1 (0-2) /lpf Urine Mucus Occasional H (None) /hpf Urine HCG, Qual Not Detected (Not Detectd) - Radiology Data Radiology results: report reviewed, image reviewed Two-view x-ray of the chest was obtained. Report was reviewed in its entirety. Impression by Dr. Bello shows normal chest. No change. Disposition Clinical Impression: Palpitations, Sinus tachycardia Disposition: HOME SELF-CARE Condition: Good Instructions (If sedation given, give patient instructions): Heart Palpitations (ED), Asthma (ED), Tachycardia (ED) Additional Instructions: Follow-up with primary care physician discuss switching her blood pressure medication, heart monitoring, and medication for her migraines. Return to the emergency department immediately for any new, worsening, or concerning symptoms. Is patient prescribed a controlled substance at d/c from ED?: No Referrals: Theron Davenport MD [Primary Care Provider] - 1-2 days Time of Disposition: 19:53
[2019-10-28 18:07] LABS: Basophils # (A) 0.1 k/uL (0-0.2); Basophils % (A) 1 %; Eosinophils # (A) 0.1 k/uL (0-0.7); Eosinophils % (A) 1 %; HCT 42.8 % (34.0-46.0); HGB 14.5 gm/dL (11.4-16.0); Lymphocytes # (A) 2.3 k/uL (1.0-4.8); Lymphocytes % (A) 24 %; MCH 27.4 pg (25.0-35.0); MCHC 33.8 g/dL (31.0-37.0); MCV 81.2 fL (80.0-100.0); Mean Platelet Volume 7.6; Monocytes # (A) 0.6 k/uL (0-1.0); Monocytes % (A) 7 %; Neutrophils # (A) 6.4 k/uL (1.3-7.7); Neutrophils % (A) 65 %; Platelet Count 459 k/uL (150-450); RBC 5.28 m/uL (3.80-5.40); RDW 15.2 % (11.5-15.5); WBC 9.8 k/uL (3.8-10.6)
[2019-10-28 18:14] LABS: ALT 31 U/L (4-34); AST 30 U/L (14-36); African American GFR (CKD) >90 (>60 ml/min/1.73 sqM); Albumin 4.7 g/dL (3.5-5.0); Alkaline Phosphatase 120 U/L (38-126); Anion Gap 13 mmol/L; Blood Urea Nitrogen 16 mg/dL (7-17); Calcium 9.4 mg/dL (8.4-10.2); Carbon Dioxide 23 mmol/L (22-30); Chloride 102 mmol/L (98-107); Glucose 87 mg/dL (74-99); Magnesium 2.2 mg/dL (1.6-2.3); Non-African American GFR(CKD) >90 (>60 ml/min/1.73 sqM); Potassium 4.2 mmol/L (3.5-5.1); Sodium 138 mmol/L (137-145); Total Bilirubin 0.3 mg/dL (0.2-1.3); Total Protein 8.3 g/dL (6.3-8.2)
[2019-10-28 18:27] LABS: Appearance,Urine Cloudy (Clear); Bilirubin,Urine Negative (Negative); Blood,Urine Negative (Negative); Color,Urine Yellow; Glucose,Urine (UA) Negative (Negative); Hyaline Casts,Urine 1 /lpf (0-2); Ketones,Urine Negative (Negative); Leukocyte Esterase,Urine Negative (Negative); Mucus,Urine Occasional /hpf; Nitrite,Urine Negative (Negative); Protein,Urine Trace (Negative); RBC,Urine 1 /hpf (0-5); Specific Gravity,Urine 1.026 (1.001-1.035); Squamous Epithelial Cell,Urine 14 /hpf (0-4); Urobilinogen,Urine <2.0 mg/dL (<2.0); WBC,Urine 3 /hpf (0-5)
[2019-10-28 18:50] LABS: INR 0.9 (<1.2); Partial Thromboplastin Time 24.8 sec (22.0-30.0); Prothrombin Time 9.8 sec (9.0-12.0)
--- NOTE | 2019-10-28 19:15 | XR ---
EXAMINATION TYPE: XR chest 2V DATE OF EXAM: 10/28/2019 COMPARISON: 08/20/2018 HISTORY: Dysrhythmia. Short of breath TECHNIQUE: FINDINGS: Heart and mediastinum are normal. Lungs are clear. Diaphragm is normal. Bony thorax appears normal. IMPRESSION: Normal chest. No change.
[2019-10-28] MEDS ORDERED: KETOROLAC 30 MG/ML 1 ML VIAL IVP STA (19:41)
[2019-10-28] MEDS ORDERED: LORazepam 2 MG/ML INJ IV STA (19:41)
[2019-10-28 20:06] VITALS: BP 126/83; PULSE 81; RESP 18
== END 2019-10-28 20:10 | disposition home or self-care (01) ==
LOC: EC 16:21
DX: R00.2 Palpitations (principal); R00.0 Tachycardia, unspecified; R06.02 Shortness of breath; R07.89 Other chest pain; F32.9 Major depressive disorder, single episode, unspecified; Z79.899 Other long term (current) drug therapy; Z88.8 Allergy status to other drugs, medicaments and biological substances
CPT/HCPCS: 36415; 93005; 80053; 84443; 83735; 84484; 85025; 85610; 85730; 81001; 81025; 71046; 99285; 96374; 96375; 96361 ×2; J2060; J1885

== ENCOUNTER 2019-11-04 17:11 | Emergency (ER) | payer OTHER ==
[2019-11-04] MEDS ORDERED: diphenhydrAMINE 50 MG/ML 1 ML VIAL IVP STA (18:39)
[2019-11-04] MEDS ORDERED: SODIUM CHLORIDE 0.9% 1,000 ML IV STA (18:39)
[2019-11-04] MEDS ORDERED: METOCLOPRAMIDE 5 MG/ML 2 ML VIAL IVP STA (18:39)
[2019-11-04] MEDS ORDERED: PROPARACAINE 0.5% OPHTH DROPS 15 ML BTL BOTH EYES STA (18:39)
[2019-11-04] MEDS ORDERED: KETOROLAC 30 MG/ML 1 ML VIAL IVP STA (18:59)
--- NOTE | 2019-11-04 19:05 | ED ---
General Adult HPI - General Chief complaint: Headache Stated complaint: racing heart, chest pain, headache, vision issues Time Seen by Provider: 11/04/19 18:25 Source: patient, RN notes reviewed Mode of arrival: ambulatory Limitations: no limitations - History of Present Illness Initial comments: 24-year-old female with a past medical history of migraines presents to the emergency department for a chief complaint of migraine. Patient states she has had a migraine for one month. States it is on the right side of her head. States it does come and go. Patient states she is sensitive to light. However patient is concerned that her vision is changing. Patient states this has been ongoing for about 2 weeks and seems to be progressively worsening. States that she has blurred vision in her left eye and double vision in her right eye. She had a normal CT of the brain on 10/20/2019. Patient had an MRI performed 4 days later on October 24 after she told her primary care doctor. No significant change from prior was noted. No new findings evident. Patient states she has also had a racing heart for several weeks that she had an extensive workup for in the emergency department and is scheduled to see a epic beacon analyst tomorrow. Patient has not followed up with a neurologist for her headache.Patient has no other complaints at this time including shortness of breath, chest pain, abdominal pain, nausea or vomiting. - Related Data Home Medications Medication Instructions Recorded Confirmed Ammonium Lactate Lotion 1 applic TOPICAL DAILY 10/28/19 10/28/19 [Lac-Hydrin 12% Lotion] Blisovi Fe 1 tab PO DAILY 10/28/19 10/28/19 Hydrochlorothiazide 12.5 mg PO DAILY 10/28/19 10/28/19 Hydrocortisone Cream 1 applic TOPICAL DAILY 10/28/19 10/28/19 [Hydrocortisone 2.5% Cream] Minocycline HCl [Minocin] 100 mg PO DAILY 10/28/19 10/28/19 PARoxetine HCL [Paxil Cr] 37.5 mg PO DAILY 10/28/19 10/28/19 Triamcinolone 0.025% Cream 1 applic TOPICAL DAILY 10/28/19 10/28/19 [Kenalog 0.025% Cream] Allergies Allergy/AdvReac Type Severity Reaction Status Date / Time sertraline [From Zoloft] Allergy Anaphylaxis Verified 11/04/19 17:19 Review of Systems ROS Statement: Those systems with pertinent positive or pertinent negative responses have been documented in the HPI. ROS Other: All systems not noted in ROS Statement are negative. Past Medical History Past Medical History: No Reported History Additional Past Medical History / Comment(s): ABDOMINAL PAIN, migraines, chronic back pain History of Any Multi-Drug Resistant Organisms: MRSA Date of last positivie culture/infection: 04/23/18 MDRO Source:: face Past Surgical History: Cholecystectomy Past Anesthesia/Blood Transfusion Reactions: Motion Sickness Past Psychological History: Depression Smoking Status: Never smoker Past Alcohol Use History: Occasional Past Drug Use History: None Reported - Past Family History Mother Family Medical History: No Reported History Father Family Medical History: Hypertension General Exam Limitations: no limitations General appearance: alert, in no apparent distress Head exam: Present: atraumatic, normocephalic, normal inspection Eye exam: Present: normal appearance, PERRL, EOMI. Absent: scleral icterus, conjunctival injection, periorbital swelling Expanded Eyelids: Normal Inspection: Bilateral Pupils: Regular, Round: Bilateral Sclera/Conjunctival: Normal Inspection: Bilateral Anterior chamber: Normal Inspection: Bilateral Posterior chamber: Normal Inspection: Bilateral Visual acuity (R) = 20/: 40 Visual acuity (L) = 20/: 40 With correction: No IOP (R) in mmH IOP (L) in mmH IOP measured with: [employer] ENT exam: Present: normal exam, normal oropharynx, mucous membranes moist, TM's normal bilaterally, normal external ear exam Neck exam: Present: normal inspection, full ROM. Absent: tenderness, meningismus, lymphadenopathy Respiratory exam: Present: normal lung sounds bilaterally. Absent: respiratory distress, wheezes, rales, rhonchi, stridor Cardiovascular Exam: Present: regular rate, normal rhythm, normal heart sounds. Absent: systolic murmur, diastolic murmur, rubs, gallop, clicks Neurological exam: Present: alert, oriented X3, normal gait, other (GCS 15) Course Vital Signs 11/04/19 17:19 Temperature 98.1 F Pulse Rate 78 Respiratory 18 Rate Blood Pressure 148/105 O2 Sat by Pulse 98 Oximetry Medical Decision Making - Medical Decision Making 24-year-old female presents with headache and visual changes. These have been ongoing for the past 2 weeks. Patient has had a headache for about a month. She does have history of migraines however has not had a headache last this long. Patient was given migraine cocktail and did have significant improvement in pain however continues to have blurry vision. She describes a blurry vision in her left eye and a double vision in her right eye. Visual acuity was 20/40 OD, 20/40 OS, 20/30 both eyes. Patient has not seen an chemical economist in years and states she may need glasses. She did have an appointment last week but canceled it to see her primary care provider. Intraocular pressures were normal bilaterally. I did review CT and MRI from last week which were normal. Patient has an appointment with epic beacon analyst tomorrow. I discussed this case and all findings with Dr. Simmons At this time he recommends outpatient follow-up with a neurologist. I discussed with the patient that she should follow-up with a neurologist as soon as possible. Patient is agreeable to this. She'll return here if worsening symptoms. - Lab Data Lab Results 11/04/19 Range/Units 18:42 Urine HCG, Qual Not Detected (Not Detectd) Disposition Clinical Impression: Headache Disposition: HOME SELF-CARE Condition: Good Instructions (If sedation given, give patient instructions): Acute Headache (ED) Additional Instructions: Please follow-up with neurologist as soon as possible. Follow up with ophthalmology as well. If you have any worsening symptoms or worsening visual changes return here to the emergency department. Is patient prescribed a controlled substance at d/c from ED?: No Referrals: Theron Davenport MD [Primary Care Provider] - 1-2 days Twan Curiel MD [Medical Doctor] - 1-2 days Time of Disposition: 19:57
[2019-11-04 20:14] VITALS: BP 133/78; PULSE 65; RESP 16; TEMP 97.7
== END 2019-11-04 20:14 | disposition home or self-care (01) ==
LOC: EC 17:11
DX: R51 Headache (principal); H53.2 Diplopia; H53.8 Other visual disturbances; H53.149 Visual discomfort, unspecified; R00.0 Tachycardia, unspecified; F32.9 Major depressive disorder, single episode, unspecified; Z88.8 Allergy status to other drugs, medicaments and biological substances; Z79.3 Long term (current) use of hormonal contraceptives; Z79.52 Long term (current) use of systemic steroids; Z79.899 Other long term (current) drug therapy; Z86.69 Personal history of other diseases of the nervous system and sense organs; Z86.14 Personal history of Methicillin resistant Staphylococcus aureus infection; Z82.49 Family history of ischemic heart disease and other diseases of the circulatory system
CPT/HCPCS: 81025; 99284; 96374; 96375 ×2; 96361; J1200; J2765; J1885

== ENCOUNTER 2019-11-07 15:23 | Emergency (ER) | payer OTHER ==
[2019-11-07 15:28] VITALS: PULSE 72
[2019-11-07] MEDS ORDERED: SODIUM CHLORIDE 0.9% 1,000 ML IV STA (15:40)
--- NOTE | 2019-11-07 15:43 | ED ---
General Adult HPI - General Chief complaint: Chest Pain Stated complaint: EILEEN, Chest pain Time Seen by Provider: 11/07/19 15:30 Source: patient, RN notes reviewed Mode of arrival: ambulatory Limitations: no limitations - History of Present Illness Initial comments: Patient is a 24-year-old female presenting to the emergency room today with a chief complaint of dizziness. She does admit that she went outside and her vision went dark and she began feeling dizzy lightheaded and her heart began racing. She states that these symptoms multiple times on the past. States been following up with an [facility] former did check her eyes today. Thought there was some swelling around the optic nerve according to patient. States that she's also seen rn dialysis recently turned into heart monitor. She states not receive the results. She states that she has episodes where her heart begins to race. She admits to migraine headaches. She states she's had multiple visits for these complaints now over the last month. Patient does admit to a recent CT of the head. This was reviewed and was unremarkable on 10/17/2019. Patient states that symptoms have improved somewhat. She states this started proximal been hour prior to arrival. Patient states vision is back to normal. She denies any headache currently. States the heart rate has also improved. States she still feels somewhat dizzy. Patient denies any recent fever, chills, shortness of breath, chest pain, back pain, abdominal pain, nausea or vomiting, numbness or tingling, or any other complaints. - Related Data Home Medications Medication Instructions Recorded Confirmed Ammonium Lactate Lotion 1 applic TOPICAL DAILY 10/28/19 10/28/19 [Lac-Hydrin 12% Lotion] Blisovi Fe 1 tab PO DAILY 10/28/19 10/28/19 Hydrochlorothiazide 12.5 mg PO DAILY 10/28/19 10/28/19 Hydrocortisone Cream 1 applic TOPICAL DAILY 10/28/19 10/28/19 [Hydrocortisone 2.5% Cream] Minocycline HCl [Minocin] 100 mg PO DAILY 10/28/19 10/28/19 PARoxetine HCL [Paxil Cr] 37.5 mg PO DAILY 10/28/19 10/28/19 Triamcinolone 0.025% Cream 1 applic TOPICAL DAILY 10/28/19 10/28/19 [Kenalog 0.025% Cream] Allergies Allergy/AdvReac Type Severity Reaction Status Date / Time sertraline [From Zoloft] Allergy Anaphylaxis Verified 11/07/19 15:27 Review of Systems ROS Statement: Those systems with pertinent positive or pertinent negative responses have been documented in the HPI. ROS Other: All systems not noted in ROS Statement are negative. Past Medical History Past Medical History: No Reported History Additional Past Medical History / Comment(s): ABDOMINAL PAIN, migraines, chronic back pain History of Any Multi-Drug Resistant Organisms: MRSA Date of last positivie culture/infection: 04/23/18 MDRO Source:: face Past Surgical History: Cholecystectomy Past Anesthesia/Blood Transfusion Reactions: Motion Sickness Past Psychological History: Depression Smoking Status: Never smoker Past Alcohol Use History: Occasional Past Drug Use History: None Reported - Past Family History Mother Family Medical History: No Reported History Father Family Medical History: Hypertension General Exam - General Exam Comments Initial Comments: General: The patient is awake and alert, in no distress, and does not appear acutely ill. Eye: Pupils are equal, round and reactive to light, extra-ocular movements are intact. No nystagmus. There is normal conjunctiva bilaterally. No signs of icterus. Ears, nose, mouth and throat: There are moist mucous membranes and no oral lesions. Neck: The neck is supple Cardiovascular: There is a regular rate and rhythm. No murmur, rub or gallop is appreciated. Respiratory: Lungs are clear to auscultation, respirations are non-labored, breath sounds are equal. No wheezes, stridor, rales, or rhonchi. Musculoskeletal: Normal ROM, no tenderness. Neurological: A&O x 3. CN II-XII intact, There are no obvious motor or sensory deficits. Coordination appears grossly intact. Speech is normal. Skin: Skin is warm and dry and no rashes or lesions are noted. Psychiatric: Cooperative, appropriate mood & affect, normal judgment. Limitations: no limitations Course Vital Signs 11/07/19 15:24 Temperature 97.8 F Pulse Rate 72 Respiratory 16 Rate Blood Pressure 140/84 O2 Sat by Pulse 96 Oximetry EKG Findings - EKG Comments: EKG Findings:: EKG performed at 1614: Shows normal sinus rhythm at 74 bpm. RI interval 134. QRS 82. QT/QTc 402/[address] change. Medical Decision Making - Medical Decision Making Patient reexamined at this time show no signs of distress. Patient's EKG reviewed and shows normal sinus rhythm. A recent CT performed on October 17 was reviewed and there was no evidence for any acute abnormality. Patient does admit that the symptoms been coming on over the last month. She been following closely with both ophthalmology and a rn dialysis. She is advisedthe family doctor the next 2 days continue to follow-up with his specialist. Advised to return if any symptoms increase worsen or for any other concerns. This time patient's doing well symptoms have resolved and will be discharged home. - Lab Data Result diagrams: 11/07/19 15:55 11/07/19 15:55 Lab Results 11/07/19 11/07/19 11/07/19 Range/Units 15:55 15:55 15:55 WBC 7.3 (3.8-10.6) k/uL RBC 4.69 (3.80-5.40) m/uL Hgb 12.8 (11.4-16.0) gm/dL Hct 38.4 (34.0-46.0) % MCV 81.9 (80.0-100.0) fL MCH 27.3 (25.0-35.0) pg MCHC 33.3 (31.0-37.0) g/dL RDW 14.7 (11.5-15.5) % Plt Count 288 (150-450) k/uL Neutrophils % 65 % Lymphocytes % 26 % Monocytes % 5 % Eosinophils % 1 % Basophils % 1 % Neutrophils # 4.7 (1.3-7.7) k/uL Lymphocytes # 1.9 (1.0-4.8) k/uL Monocytes # 0.4 (0-1.0) k/uL Eosinophils # 0.1 (0-0.7) k/uL Basophils # 0.0 (0-0.2) k/uL Sodium 137 (137-145) mmol/L Potassium 3.8 (3.5-5.1) mmol/L Chloride 103 (98-107) mmol/L Carbon Dioxide 23 (22-30) mmol/L Anion Gap 11 mmol/L BUN 14 (7-17) mg/dL Creatinine 0.70 (0.52-1.04) mg/dL Est GFR (CKD-EPI)AfAm >90 (>60 ml/min/1.73 sqM) Est GFR (CKD-EPI)NonAf >90 (>60 ml/min/1.73 sqM) Glucose 126 H (74-99) mg/dL Calcium 8.9 (8.4-10.2) mg/dL Troponin I <0.012 (0.000-0.034) ng/mL Urine Color Urine Appearance (Clear) Urine pH (5.0-8.0) Ur Specific [place] (1.001-1.035) Urine Protein (Negative) Urine Glucose (UA) (Negative) Urine Ketones (Negative) Urine Blood (Negative) Urine Nitrite (Negative) Urine Bilirubin (Negative) Urine Urobilinogen (<2.0) mg/dL Ur Leukocyte Esterase (Negative) Urine RBC (0-5) /hpf Urine WBC (0-5) /hpf Ur Squamous Epith Cells (0-4) /hpf Urine Bacteria (None) /hpf Urine Mucus (None) /hpf Urine HCG, Qual (Not Detectd) Urine Opiates Screen (NotDetected) Ur Oxycodone Screen (NotDetected) Urine Methadone Screen (NotDetected) Ur Propoxyphene Screen (NotDetected) Ur Barbiturates Screen (NotDetected) U Tricyclic Antidepress (NotDetected) Ur Phencyclidine Scrn (NotDetected) Ur Amphetamines Screen (NotDetected) U Methamphetamines Scrn (NotDetected) U Benzodiazepines Scrn (NotDetected) Urine Cocaine Screen (NotDetected) U Marijuana (THC) Screen (NotDetected) 11/07/19 11/07/19 Range/Units 16:09 16:09 WBC (3.8-10.6) k/uL RBC (3.80-5.40) m/uL Hgb (11.4-16.0) gm/dL Hct (34.0-46.0) % MCV (80.0-100.0) fL MCH (25.0-35.0) pg MCHC (31.0-37.0) g/dL RDW (11.5-15.5) % Plt Count (150-450) k/uL Neutrophils % % Lymphocytes % % Monocytes % % Eosinophils % % Basophils % % Neutrophils # (1.3-7.7) k/uL Lymphocytes # (1.0-4.8) k/uL Monocytes # (0-1.0) k/uL Eosinophils # (0-0.7) k/uL Basophils # (0-0.2) k/uL Sodium (137-145) mmol/L Potassium (3.5-5.1) mmol/L Chloride (98-107) mmol/L Carbon Dioxide (22-30) mmol/L Anion Gap mmol/L BUN (7-17) mg/dL Creatinine (0.52-1.04) mg/dL Est GFR (CKD-EPI)AfAm (>60 ml/min/1.73 sqM) Est GFR (CKD-EPI)NonAf (>60 ml/min/1.73 sqM) Glucose (74-99) mg/dL Calcium (8.4-10.2) mg/dL Troponin I (0.000-0.034) ng/mL Urine Color Yellow Urine Appearance Cloudy H (Clear) Urine pH 6.0 (5.0-8.0) Ur Specific [place] 1.027 (1.001-1.035) Urine Protein 1+ H (Negative) Urine Glucose (UA) Negative (Negative) Urine Ketones Negative (Negative) Urine Blood Large H (Negative) Urine Nitrite Negative (Negative) Urine Bilirubin Negative (Negative) Urine Urobilinogen <2.0 (<2.0) mg/dL Ur Leukocyte Esterase Negative (Negative) Urine RBC 4 (0-5) /hpf Urine WBC 12 H (0-5) /hpf Ur Squamous Epith Cells 34 H (0-4) /hpf Urine Bacteria Rare H (None) /hpf Urine Mucus Many H (None) /hpf Urine HCG, Qual Not Detected (Not Detectd) Urine Opiates Screen Not Detected (NotDetected) Ur Oxycodone Screen Not Detected (NotDetected) Urine Methadone Screen Not Detected (NotDetected) Ur Propoxyphene Screen Not Detected (NotDetected) Ur Barbiturates Screen Not Detected (NotDetected) U Tricyclic Antidepress Not Detected (NotDetected) Ur Phencyclidine Scrn Not Detected (NotDetected) Ur Amphetamines Screen Not Detected (NotDetected) U Methamphetamines Scrn Not Detected (NotDetected) U Benzodiazepines Scrn Not Detected (NotDetected) Urine Cocaine Screen Not Detected (NotDetected) U Marijuana (THC) Screen Not Detected (NotDetected) Disposition Clinical Impression: Palpitation, Dizziness Disposition: HOME SELF-CARE Condition: Good Instructions (If sedation given, give patient instructions): Heart Palpitations (ED) Additional Instructions: Please continue to follow-up with specialist and family physician. Return here to emergency room if any symptoms increase worsen or for any other concerns. Is patient prescribed a controlled substance at d/c from ED?: No Referrals: Theron Davenport MD [Primary Care Provider] - 1-2 days Time of Disposition: 18:03
[2019-11-07 16:19] LABS: Basophils % (A) 1 %; Eosinophils # (A) 0.1 k/uL (0-0.7); Eosinophils % (A) 1 %; HCT 38.4 % (34.0-46.0); HGB 12.8 gm/dL (11.4-16.0); Lymphocytes # (A) 1.9 k/uL (1.0-4.8); Lymphocytes % (A) 26 %; MCH 27.3 pg (25.0-35.0); MCHC 33.3 g/dL (31.0-37.0); MCV 81.9 fL (80.0-100.0); Mean Platelet Volume 7.7; Monocytes # (A) 0.4 k/uL (0-1.0); Monocytes % (A) 5 %; Neutrophils # (A) 4.7 k/uL (1.3-7.7); Neutrophils % (A) 65 %; Platelet Count 288 k/uL (150-450); RBC 4.69 m/uL (3.80-5.40); RDW 14.7 % (11.5-15.5); WBC 7.3 k/uL (3.8-10.6)
[2019-11-07 16:26] LABS: African American GFR (CKD) >90 (>60 ml/min/1.73 sqM); Anion Gap 11 mmol/L; Blood Urea Nitrogen 14 mg/dL (7-17); Calcium 8.9 mg/dL (8.4-10.2); Carbon Dioxide 23 mmol/L (22-30); Chloride 103 mmol/L (98-107); Glucose 126 mg/dL (74-99); Non-African American GFR(CKD) >90 (>60 ml/min/1.73 sqM); Potassium 3.8 mmol/L (3.5-5.1); Sodium 137 mmol/L (137-145)
[2019-11-07 17:28] LABS: Appearance,Urine Cloudy (Clear); Bacteria,Urine Rare /hpf; Bilirubin,Urine Negative (Negative); Blood,Urine Large (Negative); Color,Urine Yellow; Glucose,Urine (UA) Negative (Negative); Ketones,Urine Negative (Negative); Leukocyte Esterase,Urine Negative (Negative); Mucus,Urine Many /hpf; Nitrite,Urine Negative (Negative); Protein,Urine 1+ (Negative); RBC,Urine 4 /hpf (0-5); Specific Gravity,Urine 1.027 (1.001-1.035); Squamous Epithelial Cell,Urine 34 /hpf (0-4); Urobilinogen,Urine <2.0 mg/dL (<2.0); WBC,Urine 12 /hpf (0-5)
[2019-11-07 17:37] LABS: Amphetamine Screen,Urine Not Detected (NotDetected); Barbiturate Screen,Urine Not Detected (NotDetected); Benzodiazepines Screen,Urine Not Detected (NotDetected); Cocaine Screen,Urine Not Detected (NotDetected); Methadone Screen, Urine Not Detected (NotDetected); Opiate Screen,Urine Not Detected (NotDetected); Oxycodone Screen, Urine Not Detected (NotDetected); Phencyclidine Screen,Urine Not Detected (NotDetected); Tricyclic Antidepressant,Urine Not Detected (NotDetected); Urn Cannabinoid Scrn Not Detected (NotDetected)
[2019-11-07 19:09] VITALS: BP 128/76; RESP 18; TEMP 97.9
== END 2019-11-07 19:09 | disposition home or self-care (01) ==
LOC: EC 15:23
DX: R00.2 Palpitations (principal); R42 Dizziness and giddiness; G43.909 Migraine, unspecified, not intractable, without status migrainosus; F32.9 Major depressive disorder, single episode, unspecified; Z88.8 Allergy status to other drugs, medicaments and biological substances; Z79.3 Long term (current) use of hormonal contraceptives; Z79.52 Long term (current) use of systemic steroids; Z79.899 Other long term (current) drug therapy; Z86.14 Personal history of Methicillin resistant Staphylococcus aureus infection; Z82.49 Family history of ischemic heart disease and other diseases of the circulatory system
CPT/HCPCS: 36415; 80048; 80306; 81001; 81025; 84484; 85025; 93005; 96360; 99285

== ENCOUNTER 2019-12-15 05:44 | Emergency (ER) | payer OTHER ==
[2019-12-15 05:51] VITALS: BP 130/89; PULSE 89; RESP 18; TEMP 98.5
[2019-12-15] MEDS ORDERED: cefTRIAXone 1,000 MG VIAL (IM USE) IM STA (06:21)
[2019-12-15] MEDS ORDERED: IBUPROFEN 600 MG TAB PO STA (06:21)
[2019-12-15] MEDS ORDERED: TOBRAMYCIN 0.3% OPHTH OINT 3.5 GM TUBE BOTH EYES STA (06:21)
--- NOTE | 2019-12-15 06:30 | ED ---
Skin/Abscess/FB HPI - General Chief complaint: Skin/Abscess/Foreign Body Stated complaint: lt eye infection Time Seen by Provider: 12/15/19 06:11 Source: patient, RN notes reviewed, old records reviewed Mode of arrival: ambulatory Limitations: no limitations - History of Present Illness Initial comments: Patient is a 74-year-old female who presents emergency Department today with swollen left eye since Monday. Patient reports that she initially picked out a pimple on related that starting last night and into today she's noticed significant swelling surrounding her left eye about. She denies any eye pain. She denies any fevers or chills. Patient reports that she's had a history of MRSA. She denies any pain with extraocular eye movements. - Related Data Home Medications Medication Instructions Recorded Confirmed Ammonium Lactate Lotion 1 applic TOPICAL DAILY 10/28/19 10/28/19 [Lac-Hydrin 12% Lotion] Blisovi Fe 1 tab PO DAILY 10/28/19 10/28/19 Hydrochlorothiazide 12.5 mg PO DAILY 10/28/19 10/28/19 Hydrocortisone Cream 1 applic TOPICAL DAILY 10/28/19 10/28/19 [Hydrocortisone 2.5% Cream] Minocycline HCl [Minocin] 100 mg PO DAILY 10/28/19 10/28/19 PARoxetine HCL [Paxil Cr] 37.5 mg PO DAILY 10/28/19 10/28/19 Triamcinolone 0.025% Cream 1 applic TOPICAL DAILY 10/28/19 10/28/19 [Kenalog 0.025% Cream] Previous Rx's Medication Instructions Recorded Clindamycin HCl [Cleocin] 300 mg PO Q6HR #40 cap 12/15/19 Tobramycin 0.3% Ophth Soln [Tobrex 1 - 2 drop LEFT EYE Q4H #1 bottle 12/15/19 0.3% Ophth Soln] Allergies Allergy/AdvReac Type Severity Reaction Status Date / Time sertraline [From Zoloft] Allergy Anaphylaxis Verified 12/15/19 05:48 Review of Systems ROS Statement: Those systems with pertinent positive or pertinent negative responses have been documented in the HPI. ROS Other: All systems not noted in ROS Statement are negative. Past Medical History Past Medical History: No Reported History Additional Past Medical History / Comment(s): ABDOMINAL PAIN, migraines, chronic back pain History of Any Multi-Drug Resistant Organisms: MRSA Date of last positivie culture/infection: 04/23/18 MDRO Source:: face Past Surgical History: Cholecystectomy Past Anesthesia/Blood Transfusion Reactions: Motion Sickness Past Psychological History: Depression Smoking Status: Never smoker Past Alcohol Use History: Occasional Past Drug Use History: None Reported - Past Family History Mother Family Medical History: No Reported History Father Family Medical History: Hypertension General Exam - General Exam Comments Initial Comments: 24 year old female, no distress. Limitations: no limitations General appearance: alert, in no apparent distress Head exam: Present: atraumatic, normocephalic, normal inspection Eye exam: Present: normal appearance, PERRL, EOMI. Absent: scleral icterus, conjunctival injection, periorbital swelling ENT exam: Present: normal exam, other (evidence of periorbital cellulitis on left eye. Patient has area of scabbed pimple on L cheek. ) Neck exam: Present: normal inspection. Absent: tenderness, meningismus, lymphadenopathy Respiratory exam: Present: normal lung sounds bilaterally. Absent: respiratory distress, wheezes, rales, rhonchi, stridor Cardiovascular Exam: Present: regular rate, normal rhythm, normal heart sounds. Absent: systolic murmur, diastolic murmur, rubs, gallop, clicks GI/Abdominal exam: Present: soft, normal bowel sounds. Absent: distended, tenderness, guarding, rebound, rigid Extremities exam: Present: normal inspection, full ROM, normal capillary refill. Absent: tenderness, pedal edema, joint swelling, calf tenderness Back exam: Present: normal inspection Neurological exam: Present: alert, oriented X3, CN II-XII intact Psychiatric exam: Present: normal affect, normal mood Skin exam: Present: warm, dry, intact, normal color. Absent: rash Course Vital Signs 12/15/19 05:49 Temperature 98.5 F Pulse Rate 89 Respiratory 18 Rate Blood Pressure 130/89 O2 Sat by Pulse 98 Oximetry Medical Decision Making - Medical Decision Making 24-year-old female presents with left eye swelling. Patient has evidence of periorbital cellulitis stemming from a pimple on her left cheek. Patient at this time will be given IM Rocephin. She has no signs of orbital cellulitis without eye pain. Visual acuity is intact 0 bilaterally. Patient conjunctiva does not appear red. At this time Patient was given IM Rocephin, will be started on clindamycin with relation to MRSA history. I discussed that Patient also be started on antibiotic eyedrops from any conjunctivitis as it is close to being swollen shut. I discussed icing the area and advising close follow-up if there is any worsening signs or symptoms to return. Patient understands treatment plan will comply. Disposition Clinical Impression: Periorbital cellulitis of left eye Disposition: HOME SELF-CARE Condition: Good Instructions (If sedation given, give patient instructions): Periorbital Cellulitis in Adults (ED) Additional Instructions: Take medication as perscribed. Return to ED if worsening symptoms in 48 hours of antibiotics. Return to ED if any alarming signs or symptoms occur. Prescriptions: Clindamycin HCl [Cleocin] 300 mg PO Q6HR #40 cap Tobramycin 0.3% Ophth Soln [Tobrex 0.3% Ophth Soln] 1 - 2 drop LEFT EYE Q4H #1 bottle Is patient prescribed a controlled substance at d/c from ED?: No Referrals: Theron Davenport MD [Primary Care Provider] - 1-2 days Time of Disposition: 06:25
== END 2019-12-15 06:40 | disposition home or self-care (01) ==
LOC: EC 05:44
DX: L03.213 Periorbital cellulitis (principal); R23.8 Other skin changes; F32.9 Major depressive disorder, single episode, unspecified; Z88.8 Allergy status to other drugs, medicaments and biological substances; Z79.3 Long term (current) use of hormonal contraceptives; Z79.52 Long term (current) use of systemic steroids; Z79.899 Other long term (current) drug therapy; Z86.14 Personal history of Methicillin resistant Staphylococcus aureus infection
CPT/HCPCS: 99283; 96372; J0696

== ENCOUNTER 2020-10-06 03:09 | Emergency (ER) | payer OTHER ==
[2020-10-06 03:21] VITALS: RESP 18
--- NOTE | 2020-10-06 03:35 | ED ---
Female Urogenital HPI - General Chief complaint: Urogenital Stated complaint: poss UTI, 6 wks pgt Time Seen by Provider: 10/06/20 03:11 Source: patient, RN notes reviewed, old records reviewed Mode of arrival: ambulatory Limitations: no limitations - History of Present Illness Initial comments: This is a 24-year-old female to the ER for evaluation patient presents today for evaluation signs and symptoms of UTI. She has have history of urinary tract infections feels the same. No significant abdominal pain, patient is about 6 weeks , patient has had history of recent hematuria and feeling of fullness in her bladder MD Complaint: dysuria, pelvic pain (Feeling of fullness) -: days(s) Radiation: suprapubic Severity: moderate Severity scale (1-10): 4 Quality: cramping Consistency: intermittent Improves with: none Worsens with: urination Patient : Yes Associated Symptoms: hematuria - Related Data Sexually active: Yes Home Medications Medication Instructions Recorded Confirmed Ammonium Lactate Lotion 1 applic TOPICAL DAILY 10/28/19 10/28/19 [Lac-Hydrin 12% Lotion] Blisovi Fe 1 tab PO DAILY 10/28/19 10/28/19 Hydrochlorothiazide 12.5 mg PO DAILY 10/28/19 10/28/19 [hydroCHLOROthiazide] Hydrocortisone Cream 1 applic TOPICAL DAILY 10/28/19 10/28/19 [Hydrocortisone 2.5% Cream] Minocycline HCl [Minocin] 100 mg PO DAILY 10/28/19 10/28/19 PARoxetine HCL [Paxil Cr] 37.5 mg PO DAILY 10/28/19 10/28/19 Triamcinolone 0.025% Cream 1 applic TOPICAL DAILY 10/28/19 10/28/19 [Kenalog 0.025% Cream] Previous Rx's Medication Instructions Recorded Tobramycin 0.3% Ophth Soln [Tobrex 1 - 2 drop LEFT EYE Q4H #1 bottle 12/15/19 0.3% Ophth Soln] clindamycin HCL [Cleocin] 300 mg PO Q6HR #40 cap 12/15/19 Cephalexin [Keflex] 500 mg PO Q6HR #28 cap 10/06/20 Nitrofurantoin Monohyd/M-Cryst 100 mg PO Q12HR #10 cap 10/06/20 [Macrobid] Allergies Allergy/AdvReac Type Severity Reaction Status Date / Time sertraline [From Zoloft] Allergy Anaphylaxis Verified 10/06/20 03:21 Review of Systems ROS Statement: Those systems with pertinent positive or pertinent negative responses have been documented in the HPI. ROS Other: All systems not noted in ROS Statement are negative. Past Medical History Past Medical History: No Reported History Additional Past Medical History / Comment(s): ABDOMINAL PAIN, migraines, chronic back pain History of Any Multi-Drug Resistant Organisms: MRSA Date of last positivie culture/infection: 04/23/18 MDRO Source:: face Past Surgical History: Cholecystectomy Past Anesthesia/Blood Transfusion Reactions: Motion Sickness Past Psychological History: Depression Smoking Status: Never smoker Past Alcohol Use History: Occasional Past Drug Use History: None Reported - Past Family History Mother Family Medical History: No Reported History Father Family Medical History: Hypertension General Exam Limitations: no limitations General appearance: alert, in no apparent distress Head exam: Present: atraumatic, normocephalic, normal inspection Eye exam: Present: normal appearance, PERRL, EOMI. Absent: scleral icterus, conjunctival injection, periorbital swelling ENT exam: Present: normal exam, mucous membranes moist Neck exam: Present: normal inspection. Absent: tenderness, meningismus, lymphadenopathy Respiratory exam: Present: normal lung sounds bilaterally. Absent: respiratory distress, wheezes, rales, rhonchi, stridor Cardiovascular Exam: Present: regular rate, normal rhythm, normal heart sounds. Absent: systolic murmur, diastolic murmur, rubs, gallop, clicks GI/Abdominal exam: Present: soft, normal bowel sounds. Absent: distended, tenderness, guarding, rebound, rigid Extremities exam: Present: normal inspection, full ROM, normal capillary refill. Absent: tenderness, pedal edema, joint swelling, calf tenderness Back exam: Present: normal inspection Neurological exam: Present: alert, oriented X3, CN II-XII intact Psychiatric exam: Present: normal affect, normal mood Skin exam: Present: warm, dry, intact, normal color. Absent: rash Course Vital Signs 10/06/20 03:17 Temperature 98.2 F Pulse Rate 110 H Respiratory 18 Rate Blood Pressure 127/83 O2 Sat by Pulse 96 Oximetry - Reevaluation(s) Reevaluation #1: 10/06/20 04:32 Medical records reviewed Reevaluation #2: 10/06/20 04:32 Patient with no significant symptoms encouraged to increase oral intake, patient is understandable Reevaluation #3: 10/06/20 04:32 Patient informed results and questions answered Medical Decision Making - Medical Decision Making 24 female DF for evaluation she is 6 weeks positive UTI. Patient will be given appropriate treatment here in the ER, cultures are taken patient can be discharged home - Lab Data Lab Results 10/06/20 10/06/20 Range/Units 03:20 03:26 Urine Color Light Red Urine Appearance Turbid H (Clear) Urine pH 5.5 (5.0-8.0) Ur Specific [place] 1.023 (1.001-1.035) Urine Protein 2+ H (Negative) Urine Glucose (UA) Negative (Negative) Urine Ketones Trace H (Negative) Urine Blood Large H (Negative) Urine Nitrite Negative (Negative) Urine Bilirubin Negative (Negative) Urine Urobilinogen <2.0 (<2.0) mg/dL Ur Leukocyte Esterase Large H (Negative) Urine RBC >182 H (0-5) /hpf Urine WBC >182 H (0-5) /hpf Urine WBC Clumps Many H (None) /hpf Ur Squamous Epith Cells 11 H (0-4) /hpf Urine Bacteria Rare H (None) /hpf Urine Mucus Occasional H (None) /hpf Urine HCG, Qual Detected (Not Detectd) Disposition Clinical Impression: Urinary tract infection, Disposition: HOME SELF-CARE Condition: Good Instructions (If sedation given, give patient instructions): Urinary Tract Infection in Women (ED) Prescriptions: Nitrofurantoin Monohyd/M-Cryst [Macrobid] 100 mg PO Q12HR #10 cap Is patient prescribed a controlled substance at d/c from ED?: No Referrals: Theron Davenport MD [Primary Care Provider] - 1-2 days
[2020-10-06 04:12] LABS: Appearance,Urine Turbid (Clear); Bacteria,Urine Rare /hpf; Bilirubin,Urine Negative (Negative); Blood,Urine Large (Negative); Color,Urine Light Red; Glucose,Urine (UA) Negative (Negative); Ketones,Urine Trace (Negative); Leukocyte Esterase,Urine Large (Negative); Mucus,Urine Occasional /hpf; Nitrite,Urine Negative (Negative); PH, Urine 5.5 (5.0-8.0); Protein,Urine 2+ (Negative); RBC,Urine >182 /hpf (0-5); Specific Gravity,Urine 1.023 (1.001-1.035); Squamous Epithelial Cell,Urine 11 /hpf (0-4); Urobilinogen,Urine <2.0 mg/dL (<2.0); WBC,Urine >182 /hpf (0-5)
[2020-10-06] MEDS ORDERED: NITROFURANTOIN MONOHYD/M-CRYST 100 MG CAP PO STA (04:28)
[2020-10-06] MEDS ORDERED: cefTRIAXone 1,000 MG VIAL (IM USE) IM STA (04:28)
[2020-10-06] MEDS ORDERED: CEPHALEXIN 500MG STARTER PACK 4 CAP BTL PO STA (04:30)
[2020-10-06] MEDS ORDERED: CEPHALEXIN 500 MG CAP PO STA (04:30)
[2020-10-06] MEDS ORDERED: SODIUM CHLORIDE 0.9% 1,000 ML IV ONE (04:37)
[2020-10-06] MEDS ORDERED: ACETAMINOPHEN TAB 500 MG TAB PO STA (04:37)
--- NOTE | 2020-10-06 04:39 | ED ---
Medical Decision Making - Lab Data Result diagrams: 10/06/20 05:11 10/06/20 05:11 <Zeb Simmons - Last Filed: 10/06/20 06:45> - Lab Data Result diagrams: 10/06/20 05:11 10/06/20 05:11 <Igor Chinchilla - Last Filed: 10/06/20 07:59> - Medical Decision Making This 24-year-old female who presented for UTI-type symptoms and positive them began to experience some abdominal pain sharp abdominal pain here in the ER no prior confirmation of ultrasound. No vaginal bleeding but does have significant amount of blood in her urine. Patient informed of a for further testing, patient is agreeable. Beta hCG is obtained greater than 4000 ultrasound OB will be obtained to rule out ectopic versus IUP (Zeb Simmons) I did review ultrasound report, showing a small intrauterine possible early gestational sac with no yolk sac or pole. 2 early to characterize. The adnexa is within normal limits, there is no free fluid. This may represent ea rly gestation, miscarriage, or the possibility of ectopic still remains. Patient is given strict return parameters. She is given a prescription for repeat beta hCG and close OB follow-up will be required. (Igor Chinchilla) - Lab Data Lab Results 10/06/20 10/06/20 10/06/20 Range/Units 03:20 03:26 05:11 WBC 11.6 H (3.8-10.6) k/uL RBC 4.99 (3.80-5.40) m/uL Hgb 13.6 (11.4-16.0) gm/dL Hct 40.1 (34.0-46.0) % MCV 80.4 (80.0-100.0) fL MCH 27.3 (25.0-35.0) pg MCHC 34.0 (31.0-37.0) g/dL RDW 14.4 (11.5-15.5) % Plt Count 317 (150-450) k/uL MPV 7.5 Neutrophils % 75 % Lymphocytes % 17 % Monocytes % 6 % Eosinophils % 1 % Basophils % 1 % Neutrophils # 8.7 H (1.3-7.7) k/uL Lymphocytes # 2.0 (1.0-4.8) k/uL Monocytes # 0.7 (0-1.0) k/uL Eosinophils # 0.1 (0-0.7) k/uL Basophils # 0.1 (0-0.2) k/uL Sodium (137-145) mmol/L Potassium (3.5-5.1) mmol/L Chloride (98-107) mmol/L Carbon Dioxide (22-30) mmol/L Anion Gap mmol/L BUN (7-17) mg/dL Creatinine (0.52-1.04) mg/dL Est GFR (CKD-EPI)AfAm (>60 ml/min/1.73 sqM) Est GFR (CKD-EPI)NonAf (>60 ml/min/1.73 sqM) Glucose (74-99) mg/dL Calcium (8.4-10.2) mg/dL HCG, Quant mIU/mL Urine Color Light Red Urine Appearance Turbid H (Clear) Urine pH 5.5 (5.0-8.0) Ur Specific [place] 1.023 (1.001-1.035) Urine Protein 2+ H (Negative) Urine Glucose (UA) Negative (Negative) Urine Ketones Trace H (Negative) Urine Blood Large H (Negative) Urine Nitrite Negative (Negative) Urine Bilirubin Negative (Negative) Urine Urobilinogen <2.0 (<2.0) mg/dL Ur Leukocyte Esterase Large H (Negative) Urine RBC >182 H (0-5) /hpf Urine WBC >182 H (0-5) /hpf Urine WBC Clumps Many H (None) /hpf Ur Squamous Epith Cells 11 H (0-4) /hpf Urine Bacteria Rare H (None) /hpf Urine Mucus Occasional H (None) /hpf Urine HCG, Qual Detected (Not Detectd) Blood Type Blood Type Recheck Bld Type Recheck Status 10/06/20 10/06/20 Range/Units 05:11 05:11 WBC (3.8-10.6) k/uL RBC (3.80-5.40) m/uL Hgb (11.4-16.0) gm/dL Hct (34.0-46.0) % MCV (80.0-100.0) fL MCH (25.0-35.0) pg MCHC (31.0-37.0) g/dL RDW (11.5-15.5) % Plt Count (150-450) k/uL MPV Neutrophils % % Lymphocytes % % Monocytes % % Eosinophils % % Basophils % % Neutrophils # (1.3-7.7) k/uL Lymphocytes # (1.0-4.8) k/uL Monocytes # (0-1.0) k/uL Eosinophils # (0-0.7) k/uL Basophils # (0-0.2) k/uL Sodium 134 L (137-145) mmol/L Potassium 4.0 (3.5-5.1) mmol/L Chloride 103 (98-107) mmol/L Carbon Dioxide 22 (22-30) mmol/L Anion Gap 9 mmol/L BUN 11 (7-17) mg/dL Creatinine 0.61 (0.52-1.04) mg/dL Est GFR (CKD-EPI)AfAm >90 (>60 ml/min/1.73 sqM) Est GFR (CKD-EPI)NonAf >90 (>60 ml/min/1.73 sqM) Glucose 103 H (74-99) mg/dL Calcium 9.2 (8.4-10.2) mg/dL HCG, Quant 4216.4 mIU/mL Urine Color Urine Appearance (Clear) Urine pH (5.0-8.0) Ur Specific [place] (1.001-1.035) Urine Protein (Negative) Urine Glucose (UA) (Negative) Urine Ketones (Negative) Urine Blood (Negative) Urine Nitrite (Negative) Urine Bilirubin (Negative) Urine Urobilinogen (<2.0) mg/dL Ur Leukocyte Esterase (Negative) Urine RBC (0-5) /hpf Urine WBC (0-5) /hpf Urine WBC Clumps (None) /hpf Ur Squamous Epith Cells (0-4) /hpf Urine Bacteria (None) /hpf Urine Mucus (None) /hpf Urine HCG, Qual (Not Detectd) Blood Type O Positive Blood Type Recheck O Pos Bld Type Recheck Status No Disposition <Zeb Simmons - Last Filed: 10/06/20 06:45> Is patient prescribed a controlled substance at d/c from ED?: No Time of Disposition: 07:58 <Igor Chinchilla - Last Filed: 10/06/20 07:59> Clinical Impression: Urinary tract infection, Disposition: HOME SELF-CARE Condition: Good Instructions (If sedation given, give patient instructions): Urinary Tract Infection in Women (ED), (ED), Threatened Miscarriage (ED) Prescriptions: Cephalexin [Keflex] 500 mg PO Q6HR #28 cap Nitrofurantoin Monohyd/M-Cryst [Macrobid] 100 mg PO Q12HR #10 cap Referrals: Theron Davenport MD [Primary Care Provider] - 1-2 days Heather Acosta MD [STAFF PHYSICIAN] - 1-2 days
[2020-10-06 05:17] LABS: Basophils # (A) 0.1 k/uL (0-0.2); Basophils % (A) 1 %; Eosinophils # (A) 0.1 k/uL (0-0.7); Eosinophils % (A) 1 %; HCT 40.1 % (34.0-46.0); HGB 13.6 gm/dL (11.4-16.0); Lymphocytes % (A) 17 %; MCH 27.3 pg (25.0-35.0); MCV 80.4 fL (80.0-100.0); Mean Platelet Volume 7.5; Monocytes # (A) 0.7 k/uL (0-1.0); Monocytes % (A) 6 %; Neutrophils # (A) 8.7 k/uL (1.3-7.7); Neutrophils % (A) 75 %; Platelet Count 317 k/uL (150-450); RBC 4.99 m/uL (3.80-5.40); RDW 14.4 % (11.5-15.5); WBC 11.6 k/uL (3.8-10.6)
[2020-10-06 05:29] LABS: African American GFR (CKD) >90 (>60 ml/min/1.73 sqM); Anion Gap 9 mmol/L; Blood Urea Nitrogen 11 mg/dL (7-17); Calcium 9.2 mg/dL (8.4-10.2); Carbon Dioxide 22 mmol/L (22-30); Chloride 103 mmol/L (98-107); Glucose 103 mg/dL (74-99); Non-African American GFR(CKD) >90 (>60 ml/min/1.73 sqM); Sodium 134 mmol/L (137-145)
[2020-10-06 05:45] LABS: HCG,Quantitative Serum 4216.4 mIU/mL
[2020-10-06 07:31] VITALS: PULSE 84; TEMP 97.5
--- NOTE | 2020-10-06 07:45 | US ---
EXAMINATION TYPE: Transabdominal DATE OF EXAM: 10/06/2020 7:15 AM COMPARISON: NONE CLINICAL HISTORY: pain. painful urination, unable to empty bladder EXAM PERFORMED: Transabdominal (TA) EXAM MEASUREMENTS: GESTATIONAL AGE / DATING Physician Established: Not yet established Dates by LMP: (6 weeks/4 days) EDC: 05/28/21 Dates by First Scan: No previous this is first scan Dates by Current Scan for: too early to accurately measure MATERNAL ANATOMY Uterus: 10.7 x 3.9 x 6.9cm Right Ovary: 3.1 x 2.6 x 3.9cm Left Ovary: 3.3 x 1.8 x 2.5cm Post CDS / Adnexa: appears wnl Presence of free fluid: no Presence of corpus luteal cyst: hypoechoic area right ovary = 2.4 x 1.4 x 2.3cm GESTATION / SURVEY MSD: 0.7cm to early to accurately date Yolk Sac (normal less than 6mm): not seen IUP: no evidence of pole at this time Date of LMP: 08/21/20 Beta HcG (if available): 4216 Anteverted uterus. Endometrium thickened to 12 mm. There is oval 8 x 5 x 6 mm anechoic lesion suspici ous for early gestational sac. No yolk sac or pole identified currently. No free fluid. Both ovaries identified. Within right ovary there is 2.4 cm hypoechoic peripheral lesion suspicious f or corpus luteal cyst. IMPRESSION: Findings favor too early to visualize intrauterine but spontaneous is in differential and ectopic is not entirely excluded. Serial beta hCG and ultrasound follow -up advised.
[2020-10-06 08:12] VITALS: BP 130/84
[2020-10-07 14:41] LABS: C. trachomatis,PCR Negative (Neg,Equiv); Chlamydia trachomatis Source Urine; N. gonorrhoeae,PCR Negative (Neg,Equiv); Neisseria Source Urine
== END 2020-10-06 08:11 | disposition home or self-care (01) ==
LOC: EC 03:09
DX: O23.41 Unspecified infection of urinary tract in pregnancy, first trimester (principal); O99.341 Other mental disorders complicating pregnancy, first trimester; F32.9 Major depressive disorder, single episode, unspecified; Z79.899 Other long term (current) drug therapy; Z88.8 Allergy status to other drugs, medicaments and biological substances; Z3A.01 Less than 8 weeks gestation of pregnancy; Z86.14 Personal history of Methicillin resistant Staphylococcus aureus infection; Z90.49 Acquired absence of other specified parts of digestive tract
CPT/HCPCS: 36415; 86900; 86901; 80048; 85025; 81001; 81025; 84702; 87491; 87591; 87086; 87077; 87186; 76801; 99284; 96365; J0696

== ENCOUNTER → 2020-10-08 | Outpatient (CLI) | payer OTHER | END | disposition home or self-care (01) | LOC: LABWHC1 09:02 | PROVIDERS: ATTEND Emergency Medicine | DX: O20.0 Threatened abortion (principal) | CPT/HCPCS: 36415; 84702 ==